=== PATIENT | female | born 1975 | race Caucasian/White ===

== ENCOUNTER 2020-02-20 10:16 | Outpatient (CLI) | payer OTHER, SELFPAY ==
--- NOTE | ~2020-02-20 | US_ITS ---
EXAMINATION: US thyroid EXAM DATE: 02/20/2020 13:43 INDICATION: Nontoxic thyroid nodule. TECHNIQUE: Multiple grayscale and Doppler images of the thyroid were obtained (by a technologist who performed the scan) and subsequently reviewed. Individual nodules and recommendations may be reporte d in accordance with TI-RADS system as designated by the 2017 ACR White Paper TI-RADS committee. Comp jeremiah is made to prior examination from 02/27/2019. FINDINGS: Right there are lobe measures 4.2 x 1.2 x 1.4 cm, the left measuring 2.3 x 0.8 x 1.0 cm, with relativ sari homogeneous thyroid echogenicity. Again there is a right thyroid lobe nodule identified, measures 2.4 x 1.2 x 2.2 centimeters, mixed cy stic and solid (1 point), hypoechoic (2 points), wider than tall, smooth margin, without echogenic fo ci, category TR3 for this nodule. Dimensions obtained on prior study at 1.9 x 0.9 x 2.0 cm, slightly increased but not meeting growth requirement for recommending biopsy. IMPRESSION: Slight interval increase in size of right thyroid lobe nodule but not meeting criteria fo r biopsy at this time. Recommend one-year follow-up thyroid ultrasound. Reviewed, dictated and finalized at location A. IMPRESSION: Slight interval increase in size of right thyroid lobe nodule but n ot meeting criteria for biopsy at this time. Recommend one-year follow-up thyro id ultrasound.
[2020-02-20 10:33] LABS: Hematocrit 40.3 % (35.0-49.0); Hemoglobin 13.6 g/dL (12.0-15.0); Mean Corpuscular HGB Conc 33.7 g/dL (32.0-36.0); Mean Corpuscular Hemoglobin 31.1 pg (27.0-31.0); Mean Platelet Volume 10.6 fl (9.2-11.8); Platelet Count Result 211 K/mm3 (150-420); Red Blood Count 4.38 M/mm3 (4.20-5.40); Red Cell Distribution Width 11.9 % (11.6-14.4); White Blood Count 6.9 K/mm3 (4.8-10.8)
[2020-02-20 10:55] LABS: Alanine Aminotransferase 34 U/L (14-59); Albumin Level 3.8 g/dL (3.4-5.0); Alkaline Phosphatase 60 U/L (46-116); Anion Gap 11.1 mmol/L (7-16); Aspartate Amino Transferase 21 U/L (15-37); Bilirubin,Total 0.5 mg/dL (0.00-1.00); Blood Urea Nitrogen 20 mg/dL (7-18); Calcium 9.3 mg/dL (8.5-10.1); Carbon Dioxide 30 mmol/L (21-32); Chloride 103 mmol/L (98-108); Cholesterol 166 mg/dL (0-200); Estimated Glomerular Filt Rate > 60; Glucose 92 mg/dL (70-99); HDL Direct 45 mg/dL (40-60); LDL Cholesterol Calculated 102 mg/dL (<130); Osmolality Calculated 292 mOsm/kg (285-295); Potassium 4.1 mmol/L (3.5-5.1); Sodium 140 mmol/L (136-145); Total Protein 7.3 g/dL (6.4-8.2); Triglycerides 96 mg/dL (0-150)
[2020-02-20 11:17] LABS: Thyroid Stimulating Hormone Reflex 1.66 u/IU/mL (0.36-3.74)
== END 2020-02-20 10:17 | disposition home or self-care (01) ==
PROVIDERS: PCP Family Medicine; Visit Provider Family Medicine
DX: E04.1 Nontoxic single thyroid nodule (principal)
CPT/HCPCS: 36415; 76536; 80053; 80061; 84443; 85027

== ENCOUNTER 2020-05-07 14:12 | Outpatient (CLI) | payer OTHER, SELFPAY ==
[2020-05-08 01:17] LABS: SARS-CoV-2 RNA PCR Negative
== END 2020-05-07 14:13 | disposition home or self-care (01) ==
LOC: CHSLAB 14:14
PROVIDERS: PCP Family Medicine; Visit Provider Family Medicine
DX: Z20.828 Contact with and (suspected) exposure to other viral communicable diseases (principal)
CPT/HCPCS: 87635; C9803; U0003

== ENCOUNTER 2020-05-27 09:32 | Outpatient (CLI) | payer OTHER, SELFPAY ==
--- NOTE | ~2020-05-27 | MMUS_ITS ---
EXAMINATION: MM screen RT diag LT w liliya, US breast LT limited HISTORY: Six-month follow-up for probably benign left breast masses, exam is do one year ago. TECHNIQUE: Craniocaudal, mediolateral, and mediolateral oblique 3-D tomosynthesis images of the left breast were performed and synthetic 2-D images were generated. Craniocaudal and mediolateral oblique 3-D tomosynthesis images of the right breast were performed and synthetic 2-D images were generated. CAD analysis was submitted and interpreted. High resolution limited left breast ultrasound was perfor med. COMPARISON: 12/08/2018, 06/13/2018 BREAST PARENCHYMAL COMPOSITION: The breasts are heterogeneously dense, which may obscure small masses . FINDINGS: MAMMOGRAPHIC FINDINGS: Right breast: There is no evidence of suspicious mass, calcification, or architectural distortion to suggest malignancy. Left breast: The previously described circumscribed equal density mass in the middle third of the an ast at the 9:00 location has decreased in size measuring 5 mm, previously 7 mm. No suspicious calcifi cation or architectural distortion are identified. ULTRASOUND: A stable 6 mm x 4 mm oval, circumscribed, parallel, hypoechoic mass is present at the 11:00 location 3 cm from the nipple. There is a cyst at the 9:00 location 2 cm from the nipple. Cysts are also prese nt at the 12:00 location 2 cm from the nipple. There is a possible 12 mm x 3 mm mass versus dense tis josé at the 12:00 location 2 cm from the nipple. IMPRESSION: 1. Probably benign left breast masses. 2. Recommend 6 month follow-up left diagnostic mammogram and ultrasound. BI-RADS category 3, probably benign findings. Reviewed, dictated and finalized at location A. IMPRESSION: 1. Probably benign left breast masses. 2. Recommend 6 month follow-up left diagnostic mammogram and ultrasound. BI-RADS category 3, probably benign findings.
== END 2020-05-27 09:33 | disposition home or self-care (01) ==
LOC: CHSIMG 09:33
PROVIDERS: PCP Family Medicine; Visit Provider Family Medicine
DX: Z12.31 Encounter for screening mammogram for malignant neoplasm of breast (principal); R92.8 Other abnormal and inconclusive findings on diagnostic imaging of breast
CPT/HCPCS: 76642; 77063; 77065; 77067

== ENCOUNTER 2020-07-07 10:01 | Outpatient (CLI) | payer OTHER, SELFPAY ==
[2020-07-08 14:53] LABS: SARS-CoV-2 RNA PCR Negative
== END 2020-07-07 10:02 | disposition home or self-care (01) ==
LOC: CHSLAB 10:04
PROVIDERS: PCP Family Medicine; Visit Provider Family Medicine
DX: Z20.828 Contact with and (suspected) exposure to other viral communicable diseases (principal)
CPT/HCPCS: 87635; C9803; U0003

== ENCOUNTER 2020-07-29 10:19 | Outpatient (CLI) | payer OTHER, SELFPAY ==
[2020-07-29 23:36] LABS: SARS-CoV-2 RNA PCR Negative
== END 2020-07-29 10:20 | disposition home or self-care (01) ==
PROVIDERS: PCP Family Medicine; Visit Provider Family Medicine
DX: Z20.828 Contact with and (suspected) exposure to other viral communicable diseases (principal)
CPT/HCPCS: 87635; C9803; U0003

== ENCOUNTER 2021-05-12 09:46 | Outpatient (CLI) | payer OTHER, SELFPAY ==
--- NOTE | ~2021-05-12 | MMUS_ITS ---
EXAMINATION: MM diagnostic kierra LT w liliya, US breast LT complete HISTORY: Follow-up left breast mass TECHNIQUE: Additional 3-D tomosynthesis images of the left breast were performed and synthetic 2-D im ages were generated. CAD analysis was submitted and interpreted. High resolution complete left breast ultrasound was performed. COMPARISON: Comparison to multiple prior studies sequentially, with oldest reviewed study dated 05/26. BREAST PARENCHYMAL COMPOSITION: Breast composed of scattered areas of fibroglandular density FINDINGS: MAMMOGRAPHIC FINDINGS: There is a persistent mass in the lower inner quadrant of the left breast, middle third. This mass a ppears slightly smaller than on prior examination. ULTRASOUND: Complete left breast ultrasound: At 12:00, 2 cm from the nipple, there is an oval hypoechoic mass alexandru suring 4 mm with parallel orientation, no internal vascularity and no posterior features. At 12:00, 2 cm from the nipple, there is a 7 mm cyst. At 12:00, 2 cm from the nipple, there is an oval hypoechoi c 6 mm mass, likely complicated cysts. At 1:00, 8 cm from the nipple, there is a 8 mm intramammary ly mph node. At 2:00, 5 cm from the nipple, there is a 5 mm cyst. At 9:00, 2 cm from the nipple, there i s a heterogeneous 5 mm mass with echogenic hilum, likely intramammary lymph node. IMPRESSION: 1. Probable benign left breast masses. 2. Recommend 6 month follow-up diagnostic mammogram and ultrasound BI-RADS category 3, probably benign findings. Reviewed, dictated and finalized at location A. IMPRESSION: 1. Probable benign left breast masses. 2. Recommend 6 month follow-up diagnostic mammogram and ultrasound BI-RADS category 3, probably benign findings.
--- NOTE | ~2021-05-12 | US_ITS ---
EXAMINATION: US thyroid EXAM DATE: 05/12/2021 10:57 INDICATION: E04.1 - Nontoxic single thyroid nodule. TECHNIQUE: Multiple grayscale and Doppler images of the thyroid were obtained (by a technologist who performed the scan) and subsequently reviewed. Individual nodules and recommendations may be reporte d in accordance with TI-RADS system as designated by the 2017 ACR White Paper TI-RADS committee. Comp patrickson is made to prior examination from 02/27/2019, 02/20/2020. FINDINGS: The right thyroid lobe measures 3.3 x 1.1 x 1.2 cm, the left measuring 2.8 x 0.6 x 1.0 cm. Again ther e are scattered thyroid nodules. Largest in the right thyroid lobe toward the isthmus, part solid cys tic today measures 1.7 x 1.5 x 1.9 cm (measured 1.9 x 0.9 x 2.0 cm in 2018, 2.4 x 1.2 x 2.2 in 2019). Category TR 3. There are some echogenic foci along the cyst/wall interfaces. IMPRESSION: Stable right thyroid nodule; recommend one-year follow-up. Reviewed, dictated and finalized at location B.
[2021-05-12 09:58] LABS: Hematocrit 42.3 % (35.0-49.0); Hemoglobin 13.8 g/dL (12.0-15.0); Mean Corpuscular HGB Conc 32.6 g/dL (32.0-36.0); Mean Corpuscular Hemoglobin 29.6 pg (27.0-31.0); Mean Corpuscular Volume 90.6 fL (78.0-102.0); Mean Platelet Volume 10.2 fl (9.2-11.8); Platelet Count Result 223 K/mm3 (150-420); Red Blood Count 4.67 M/mm3 (4.20-5.40); Red Cell Distribution Width 12.6 % (11.6-14.4); White Blood Count 5.8 K/mm3 (4.8-10.8)
[2021-05-12 10:55] LABS: Alanine Aminotransferase 36 U/L (14-59); Albumin Level 3.9 g/dL (3.4-5.0); Alkaline Phosphatase 64 U/L (46-116); Anion Gap 12 mmol/L (8-16); Aspartate Amino Transferase 16 U/L (15-37); Bilirubin,Total 0.4 mg/dL (0.00-1.00); Blood Urea Nitrogen 16 mg/dL (7-18); Calcium 9.5 mg/dL (8.5-10.1); Carbon Dioxide 29 mmol/L (21-32); Chloride 103 mmol/L (98-108); Cholesterol 154 mg/dL (0-200); Estimated Glomerular Filt Rate > 60; Glucose 95 mg/dL (70-99); HDL Direct 50 mg/dL (40-60); LDL Cholesterol Calculated 83 mg/dL (<130); Osmolality Calculated 299 mOsm/kg (285-295); Potassium 4.4 mmol/L (3.5-5.1); Sodium 144 mmol/L (136-145); Total Protein 6.8 g/dL (6.4-8.2); Triglycerides 106 mg/dL (0-150)
[2021-05-12 10:58] LABS: Thyroid Stimulating Hormone Reflex 2.36 u/IU/mL (0.36-3.74)
== END 2021-05-12 09:47 | disposition home or self-care (01) ==
LOC: CHSLAB 09:48
PROVIDERS: PCP Family Medicine; Visit Provider Family Medicine
DX: Z00.00 Encounter for general adult medical examination without abnormal findings (principal); R92.8 Other abnormal and inconclusive findings on diagnostic imaging of breast; E11.9 Type 2 diabetes mellitus without complications; E04.1 Nontoxic single thyroid nodule
CPT/HCPCS: 36415; 76536; 76641; 77061; 77065; 80053; 80061; 84443; 85027; G0279

== ENCOUNTER 2021-07-14 15:57 | Outpatient (CLI) | payer OTHER, SELFPAY ==
--- NOTE | ~2021-07-14 | XR_ITS ---
EXAMINATION: XR shoulder LT min 2V DATE: 07/14/2021 16:11 INDICATION: Rotator cuff tendinitis. However stretching injury at the left shoulder. TECHNIQUE: AP internally and externally rotated, AP oblique externally rotated and transscapular Y vi ews of the left shoulder were obtained. COMPARISON: None FINDINGS: Normal alignment. No fracture. Glenohumeral joint is normal. Mild acromioclavicular osteoarthritis. Soft tissues are unremarkable. Visualized portions of the lungs are clear. IMPRESSION: Mild left acromioclavicular osteoarthritis. Reviewed, dictated and finalized at location A. 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
== END 2021-07-14 15:58 | disposition home or self-care (01) ==
LOC: CHSIMG 15:59
PROVIDERS: PCP Family Medicine; Visit Provider Family Medicine
DX: M75.82 Other shoulder lesions, left shoulder (principal)
CPT/HCPCS: 73030

== ENCOUNTER 2021-08-04 07:40 | Outpatient (RCR) | payer OTHER, SELFPAY ==
--- NOTE | 2021-08-04 08:10 | PTOPEVAL ---
Thank you for referring Felisha Epperson to [facility].? The patient is scheduled to be seen for therapy? ____x/week for ___ weeks. Please review, sign, date and return this plan of care MICHELLE. I agree with and certify that the following plan of care is medically necessary. Referring Physician Date Admitting Provider: Attending Provider: Adalberto Alexis DO Referring Provider: *PT Outpatient Evaluation Start: 08/04/21 07:07 Freq: Status: Active Protocol: Document 08/04/21 07:07 ACR (Rec: 08/04/21 08:10 ACR [id number]) Therapy Assessment Status Assessment Status Assessment Status Evaluation Evaluation Information Problem Diagnosis L shoulder pain Onset 06/25/21 Subjective Information Patient reports that overtime Query Text:As Reported By Patient/ her shoulder started to really Family bother her. She was reaching over her opposite shoulder recently and felt a muscle spasm and the pain increased. She went to the MD and was given a steroid shot and did not have any relief. Patient states that lifting, overhead reaching, washing her back, getting dressed, and getting comfortable at night are all difficult for her. Patient states that her goal for therapy is to strengthen her arm to perform her daily and work activities. 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 [employer] Right Activity of Daily Living Ability Independent Indoor/Home Mobility Independent Community Mobility Independent Stairs Ability Independent Functional Cognition (Planning, Shopping Independent , Taking Medications) Cooking Yes Cleaning Yes Laundry Yes Shopping Yes Driving Yes Pain Assessment Timing of Pain Assessment Timing of Pain Assessment Assessment Pain Scale Pain Scale Used Numeric (1 - 10) Self Report Pain Assessment Left Shoulder(s) Reported Pain Level 2 Pain Description Aching,Dull Greatest Pain Intensity 9 Pain Score Pain Score 2: Self Report Interventions Used Interventions Used By Clinicians Activity or ADL's,Electrical
== END 2021-08-18 08:45 | disposition home or self-care (01) ==
LOC: CHSPT 07:40
PROVIDERS: PCP Family Medicine; Visit Provider Family Medicine
DX: M25.512 Pain in left shoulder (principal)
CPT/HCPCS: 97014; 97110; 97140; 97161; 97530; G0283

== ENCOUNTER 2021-08-31 14:49 | Outpatient (CLI) | payer OTHER, SELFPAY ==
--- NOTE | ~2021-08-31 | XR_ITS ---
EXAMINATION: XR abdomen/kub 1V DATE: 08/31/2021 15:07 INDICATION: Diarrhea. TECHNIQUE: A supine view of the abdomen was obtained. COMPARISON: Abdomen radiographs 03/27/2006 FINDINGS: There are no dilated loops of bowel. There is a moderate volume of stool in the colon. Ther e is fold thickening in the descending colon, consistent with colitis. IMPRESSION: 1. Fold thickening in the descending colon, consistent with colitis. Reviewed, dictated and finalized at location A. 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
== END 2021-08-31 14:50 | disposition home or self-care (01) ==
LOC: CHSLAB 14:50
PROVIDERS: PCP Nurse Practitioner Family; Visit Provider Nurse Practitioner Family
DX: R19.7 Diarrhea, unspecified (principal)
CPT/HCPCS: 74018

== ENCOUNTER 2021-09-01 08:55 | Outpatient (NON) | payer OTHER, SELFPAY | END 2021-09-01 08:56 | disposition home or self-care (01) | LOC: CHSLAB 08:57 | PROVIDERS: Visit Provider Nurse Practitioner Family | DX: R19.7 Diarrhea, unspecified (principal) | CPT/HCPCS: 87177; 87209; 87269 ==

== ENCOUNTER 2021-09-17 08:48 | Outpatient (CLI) | payer OTHER, SELFPAY ==
--- NOTE | ~2021-09-17 | XR_ITS ---
EXAMINATION: XR abdomen/kub 1V EXAM DATE: 09/17/2021 09:02 INDICATION: f/u colitis from 2 weeks ago . TECHNIQUE: Frontal projection(s) of the abdomen for interpretation. Comparison is made to prior exami nation from 08/31/2021. FINDINGS: There is moderate amount of colonic stool and gas. Previously seen colonic haustral fold th ickening has resolved. No small bowel dilation, nonobstructive bowel gas pattern. There are no mcrea spicious calcifications identified. There is no organomegaly suspected. The bones are unremarkable . IMPRESSION: Moderate amount of colonic stool. Reviewed, dictated and finalized at location B. 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
== END 2021-09-17 08:49 | disposition home or self-care (01) ==
LOC: CHSIMG 08:50
PROVIDERS: PCP Family Medicine; Visit Provider Nurse Practitioner Family
DX: K52.9 Noninfective gastroenteritis and colitis, unspecified (principal)
CPT/HCPCS: 74018

== ENCOUNTER 2021-11-10 10:58 | Outpatient (CLI) | payer OTHER, SELFPAY ==
[2021-11-10 16:52] LABS: Free T4 Free Thyroxine 1.02 ng/mL (0.78-2.19); Vitamin D 25 Hydroxy 30.1 ng/mL
[2021-11-13 06:10] LABS: FSH 25.3 mIU/mL (***)
== END 2021-11-10 10:59 | disposition home or self-care (01) ==
LOC: ANHWCLAB 11:00
PROVIDERS: PCP Family Medicine; Visit Provider Internal Medicine Endocrinology, Diabetes & Metabolism
DX: E04.1 Nontoxic single thyroid nodule (principal); E55.9 Vitamin D deficiency, unspecified; N95.1 Menopausal and female climacteric states
CPT/HCPCS: 36415; 82306; 83001; 84439; 84443

== ENCOUNTER 2022-05-25 08:55 | Outpatient (CLI) | payer OTHER, SELFPAY ==
--- NOTE | ~2022-05-25 | MMUS_ITS ---
EXAMINATION: MM diagnostic kierra BI w liliya, US breast BI complete HISTORY: Left breast masses follow-up TECHNIQUE: Full field and spot ML, MLO and CC 3-D tomosynthesis images of both breasts were performed and synthetic 2-D images were generated. CAD analysis was submitted and interpreted. High resolution complete bilateral breast ultrasound including all 4 quadrants and subareolar areas of each breast w as performed. COMPARISON: 05/12/2021 bilateral diagnostic mammogram and complete left breast ultrasound 05/26/2018 bilateral screening mammogram BREAST PARENCHYMAL COMPOSITION: There are scattered areas of fibroglandular density. FINDINGS: MAMMOGRAPHIC FINDINGS: Left breast: There is diminished size of a mass posterior inner mid left breast since 05/26/2018, dimi nished from 5.3 to 3.6 mm dimension during the interval, suggesting that this is a benign process. Right breast: There is a circumscribed approximately 4.5 x 7.5 mm mass in the very posterior inner mi d right breast. No interval suspicious mass, architectural distortion, malignant constipation, skin thickening or ret raction or significant new or developing density of either breast is noted otherwise. ULTRASOUND: Right breast: 9:00 near nipple: Dumbbell shaped 2.6 x 3.9 mm largely sonolucent lesion without posterior shadowing, likely benign Left breast: 12:00 3 cm from nipple: Parallel circumscribed 4.5 x 5.2 x 3 mm hypoechoic solid lesion without suspi cious internal vascularity or posterior shadowing 12:30 2 cm from nipple: Parallel circumscribed 7.7 x 5.6 x 4.5 mm hypoechoic lesion without internal vascularity or posterior shadowing IMPRESSION: 1. Benign findings 2. Bilateral mammographic screening in 12 months is recommended BI-RADS Category 2: Benign finding(s). Reviewed, dictated and finalized at location A. IMPRESSION: 1. Benign findings 2. Bilateral mammographic screening in 12 months is recommended BI-RADS Category 2: Benign finding(s).
--- NOTE | ~2022-05-25 | US_ITS ---
EXAMINATION: US thyroid DATE: 05/25/2022 09:47 INDICATION: Thyroid nodules TECHNIQUE: Multiple ultrasound images of the thyroid were obtained. COMPARISON: None. FINDINGS: The right thyroid lobe measures 3.8 x 1.8 x 1.2 cm. The left thyroid lobe measures 2.9 x 1.4 x 0.8 c m. Slight decrease in size of a now 1.4 similar wider than tall mixed solid and cystic hypoechoic no dule with smooth margins and without internal echogenic foci. (TI-RADS 3, mildly suspicious , FNA if >=2.5 cm, annual followup is >=1.5 cm) at the right thyroid lobe at the junction with the isthmus. Th ere are couple normal-sized jugular chain lymph nodes measuring 5 mm in maximal short axis diameter o n the left and 4 mm on the right. IMPRESSION: 1. Slight interval decrease in size of a now 1.4 cm TI RADS 3 nodule right thyroid nodule which is no w below size threshold for either biopsy or follow-up. Reviewed, dictated and finalized at location A. IMPRESSION: 1. Slight interval decrease in size of a now 1.4 cm TI RADS 3 nodule right thyr oid nodule which is now below size threshold for either biopsy or follow-up.
== END 2022-05-25 08:56 | disposition home or self-care (01) ==
LOC: CHSIMG 08:57
PROVIDERS: PCP Family Medicine; Visit Provider Internal Medicine Endocrinology, Diabetes & Metabolism
DX: E04.1 Nontoxic single thyroid nodule (principal); R92.8 Other abnormal and inconclusive findings on diagnostic imaging of breast
CPT/HCPCS: 76536; 76641; 77062; 77066; G0279

== ENCOUNTER 2022-06-29 16:04 | Outpatient (NON) | payer OTHER, SELFPAY | END 2022-06-29 16:05 | disposition home or self-care (01) | LOC: CHSLAB 16:05 | PROVIDERS: Visit Provider Family Medicine | DX: N39.0 Urinary tract infection, site not specified (principal) | CPT/HCPCS: 87077; 87086; 87088; 87186 ==

== ENCOUNTER 2023-05-19 10:52 | Outpatient (CLI) | payer OTHER, SELFPAY ==
[2023-05-19 18:51] LABS: Free T4 Free Thyroxine 1.11 ng/mL (0.78-2.19); Vitamin D 25 Hydroxy 45.8 ng/mL
== END 2023-05-19 10:53 | disposition home or self-care (01) ==
LOC: ANHWCLAB 10:53
PROVIDERS: PCP Nurse Practitioner Family; Visit Provider Internal Medicine Endocrinology, Diabetes & Metabolism
DX: E55.9 Vitamin D deficiency, unspecified (principal); E04.1 Nontoxic single thyroid nodule
CPT/HCPCS: 36415; 82306; 84439; 84443

== ENCOUNTER 2023-06-21 12:59 | Outpatient (CLI) | payer OTHER, SELFPAY ==
--- NOTE | ~2023-06-21 | MM_ITS ---
EXAMINATION: MM screening kierra BI w liliya HISTORY: Screening mammogram TECHNIQUE: Craniocaudal and mediolateral oblique 3-D tomosynthesis images were obtained and synthetic 2-D images were generated. CAD analysis was submitted and interpreted. COMPARISON: 05/25/2022 bilateral diagnostic mammography and bilateral complete breast ultrasound exami nation 05/26/2018 [facility] bilateral screening mammogram BREAST PARENCHYMAL COMPOSITION: There are scattered areas of fibroglandular density. FINDINGS: Stable fibroglandular asymmetry. Interval decreased size of a nodular density in the principal process engineer ior inner mid left breast since 2018. There is no evidence of suspicious mass, calcification, or arch itectural distortion to suggest malignancy in either breast. There has been no suspicious interval ch kandace. IMPRESSION: 1. No mammographic evidence of malignancy. 2. Recommend routine screening mammography in one year. BI-RADS Category 2: Benign finding(s). Reviewed, dictated and finalized at location A.
== END 2023-06-21 13:00 | disposition home or self-care (01) ==
LOC: CHSIMG 13:00
PROVIDERS: PCP Nurse Practitioner Family; Visit Provider Family Medicine
DX: Z12.31 Encounter for screening mammogram for malignant neoplasm of breast (principal)
CPT/HCPCS: 77063; 77067

== ENCOUNTER 2024-05-19 09:34 | Outpatient (CLI) | payer OTHER, SELFPAY ==
[2024-05-19 10:23] LABS: Hemoglobin A1C 5.3 % (<5.7)
[2024-05-19 10:31] LABS: Free T4 Free Thyroxine 0.85 ng/dL (0.76-1.46); Thyroid Stimulating Hormone 1.88 uIU/mL (0.36-3.74)
[2024-05-22 06:34] LABS: Vitamin D 25 Hydroxy 36 ng/mL (30-100)
== END 2024-05-19 09:35 | disposition home or self-care (01) ==
LOC: CHSLAB 09:35
PROVIDERS: PCP Family Medicine; Visit Provider Internal Medicine Endocrinology, Diabetes & Metabolism
DX: Z13.1 Encounter for screening for diabetes mellitus (principal); E55.9 Vitamin D deficiency, unspecified; E04.1 Nontoxic single thyroid nodule; Z83.3 Family history of diabetes mellitus
CPT/HCPCS: 36415; 82306; 83036; 84439; 84443

== ENCOUNTER 2024-06-20 14:33 | Outpatient (CLI) | payer OTHER, SELFPAY ==
[2024-06-20 14:43] LABS: Basophils Absolute Auto 0.04 K/mm3 (0.00-0.10); Basophils Percent Auto 0.5 % (0.0-1.0); Eosinophils Absolute Auto 0.15 K/mm3 (0.02-0.50); Hematocrit 40.8 % (35.0-49.0); Hemoglobin 13.5 g/dL (12.0-15.0); Immature Granulocyte Absolute 0.04 K/mm3 (0.00-0.00); Immature Granulocyte Percent A 0.5 % (0.0-0.0); Lymphocytes Absolute Auto 1.64 K/mm3 (1.10-4.50); Lymphocytes Percent Auto 21.8 % (18.0-42.0); Mean Corpuscular HGB Conc 33.1 g/dL (32-36); Mean Corpuscular Hemoglobin 29.3 pg (27.0-31.0); Mean Corpuscular Volume 88.5 fL (78.0-102.0); Mean Platelet Volume 10.1 fl (9.2-11.8); Monocytes Absolute Auto 0.56 K/mm3 (0.10-0.90); Monocytes Percent Auto 7.4 % (2.0-11.0); Neutrophils Percent Auto 67.8 % (50.0-70.0); Platelet Count Result 228 K/mm3 (150-420); Red Blood Count 4.61 M/mm3 (4.20-5.40); Red Cell Distribution Width 12.6 % (11.6-14.4); White Blood Count 7.5 K/mm3 (4.8-10.8)
[2024-06-20 15:51] LABS: Alanine Aminotransferase 54 U/L (14-59); Albumin Level 3.8 g/dL (3.4-5.0); Alkaline Phosphatase 76 U/L (46-116); Anion Gap 8 mmol/L (4-12); Aspartate Amino Transferase 22 U/L (15-37); Bilirubin,Total 0.3 mg/dL (0.00-1.00); Blood Urea Nitrogen 18 mg/dL (7-18); Calcium 9.2 mg/dL (8.5-10.1); Carbon Dioxide 30 mmol/L (21-32); Chloride 106 mmol/L (98-108); Cholesterol 170 mg/dL (0-200); Estimated Glomerular Filt Rate > 60; Folic Acid 16.5 ng/mL (8.6->20); Glucose 140 mg/dL (70-99); HDL Direct 49 mg/dL (40-60); LDL Cholesterol Calculated 85 mg/dL (<130); Magnesium 2.3 mg/dL (1.8-2.4); Osmolality Calculated 301 mOsm/kg (285-295); Potassium 4.2 mmol/L (3.5-5.1); Sodium 144 mmol/L (136-145); Total Protein 7.1 g/dL (6.4-8.2); Triglycerides 178 mg/dL (0-150); Vitamin B12 781 pg/mL (193-986)
[2024-06-21 15:34] LABS: Hemoglobin A1C 5.9 % (<5.7)
[2024-06-22 04:58] LABS: Hepatitis B Surface Antigen NON-REACTIVE (NON-REACTIVE); Hepatitis C Virus Antibody NON-REACTIVE (NON-REACTIVE)
[2024-06-22 05:02] LABS: Hepatitis A Antibody IgM NON-REACTIVE (NON-REACTIVE); Hepatitis B Core Antibody NON-REACTIVE (NON-REACTIVE)
[2024-06-25 04:53] LABS: Vitamin A 65 mcg/dL (38-98)
== END 2024-06-20 14:34 | disposition home or self-care (01) ==
LOC: CHSLAB 14:34
PROVIDERS: PCP Family Medicine; Visit Provider Family Medicine
DX: Z00.00 Encounter for general adult medical examination without abnormal findings (principal); E53.8 Deficiency of other specified B group vitamins; R53.83 Other fatigue; R74.01 Elevation of levels of liver transaminase levels; E11.9 Type 2 diabetes mellitus without complications
CPT/HCPCS: 36415; 80053; 80061; 80074; 82607; 82746; 83036; 83735; 84590; 85025

== ENCOUNTER 2024-07-25 14:49 | Outpatient (CLI) | payer OTHER, SELFPAY ==
--- NOTE | ~2024-07-25 | MM_ITS ---
EXAMINATION: MM screening [facility] BI w liliya HISTORY: Screening TECHNIQUE: Craniocaudal and mediolateral oblique 3-D tomosynthesis images were obtained and synthetic 2-D images were generated. CAD analysis was submitted and interpreted. COMPARISON: Comparison to multiple prior studies sequentially, with oldest reviewed study dated 12/08. BREAST PARENCHYMAL COMPOSITION: Not dense: There are scattered areas of fibroglandular density. FINDINGS: There is no evidence of suspicious mass, calcification, or architectural distortion to sugg est malignancy in either breast. There has been no suspicious interval change. IMPRESSION: 1. No mammographic evidence of malignancy. 2. Recommend routine screening mammography in one year. BI-RADS Category 1: Negative Reviewed, dictated and finalized at location B. 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
== END 2024-07-25 14:50 | disposition home or self-care (01) ==
PROVIDERS: PCP Family Medicine; Visit Provider Family Medicine
DX: Z12.31 Encounter for screening mammogram for malignant neoplasm of breast (principal)
CPT/HCPCS: 77063; 77067

== ENCOUNTER 2024-12-17 09:00 | Outpatient (CLI) | payer OTHER, SELFPAY ==
[2024-12-17 09:10] LABS: Basophils Absolute Auto 0.04 K/mm3 (0.00-0.10); Basophils Percent Auto 0.6 % (0.0-1.0); Eosinophils Absolute Auto 0.25 K/mm3 (0.02-0.50); Eosinophils Percent Auto 3.7 % (1.0-6.0); Hematocrit 41.8 % (35.0-49.0); Hemoglobin 13.5 g/dL (12.0-15.0); Immature Granulocyte Absolute 0.02 K/mm3 (0.00-0.00); Immature Granulocyte Percent A 0.3 % (0.0-0.0); Lymphocytes Absolute Auto 1.77 K/mm3 (1.10-4.50); Lymphocytes Percent Auto 26.5 % (18.0-42.0); Mean Corpuscular HGB Conc 32.3 g/dL (32-36); Mean Corpuscular Hemoglobin 29.4 pg (27.0-31.0); Mean Corpuscular Volume 91.1 fL (78.0-102.0); Mean Platelet Volume 10.5 fl (9.2-11.8); Monocytes Absolute Auto 0.52 K/mm3 (0.10-0.90); Monocytes Percent Auto 7.8 % (2.0-11.0); Neutrophils Absolute Auto 4.07 K/mm3 (1.70-7.20); Neutrophils Percent Auto 61.1 % (50.0-70.0); Platelet Count Result 211 K/mm3 (150-420); Red Blood Count 4.59 M/mm3 (4.20-5.40); Red Cell Distribution Width 12.7 % (11.6-14.4); White Blood Count 6.7 K/mm3 (4.8-10.8)
--- OUTSIDE RECORDS SUMMARY | 2024-12-17 09:52 | XMS_ITS | Clinical Summary ---
Author Organization [facility] Address [address] [place] [id number] Care Team Providers Care Fixer Boarding Room Name Role Phone Unavailable Primary Care Provider Unavailabl e Social History Tobacco Use Types Packs/Day Years Used Date Smoking Tobacco: Never Assessed Comments Unknown Sex and Gender Information Value Date Recorded Sex Assigned at Not on file Legal Sex Female 8:20 PM CDT Gender Identity Not on file Sexual Orientation Not on file Last Filed Vital Signs Vital Sign Reading Time Taken Comments Blood Pressure 100/60 06/16/2013 5:20 PM CDT Pulse 92 06/16/2013 5:20 PM CDT Temperature - - Respiratory Rate - - Oxygen Saturation - - Inhaled Oxygen Concentration - - Weight 62.6 kg (138 lb) 06/16/2013 5:20 PM CDT Height 157.5 cm (5' 2 ) 06/16/2013 5:20 PM CDT Body Mass Index 25.24 06/16/2013 5:20 PM CDT Plan of Treatment Health Maintenance Due Date Last Done Comments Cervical Cancer Screening Pa p Smear (Age 30 to 64) Every 3 Years 1974 Colorectal Cancer Screening Colonoscopy (10 Years) 1974 Annual Physical 1977 Hepatitis C 1992 DTaP, Tdap and Td Vaccines ( 1 - Tdap) 1993 Hepatitis B Vaccines (1 of 3 - 19+ 3-dose series) 1993 Cervical Cancer Screening Pa p with HPV Testing (Age 30 to 64) Every 5 Years 2004 Cervical Cancer Screening with HPV 2004 Mammogram Screening 2014 Pneumococcal Vaccine: 50+ Ye ars (1 of 1 - PCV) 2024 Zoster Vaccines (1 of 2) 2024 COVID-19 Vaccine (2023-2 5 season) 2024 Meningococcal B Vaccine Aged Out No l onger eligible based on patient's age to complete this topic Meningococcal Vaccine Aged Out No moshe carmine eligible based on patient's age to complete this topic RSV Immunizations Under 20 Months Aged Out No longer eligible based on patient's age to complete this topic
--- OUTSIDE RECORDS SUMMARY | 2024-12-17 09:52 | XMS_ITS | Clinical Summary ---
Author Organization [facility] Address [address] 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 This disclosure is being madepursuant to the Care Everywhere program and may not contain all information available regarding this patient. Last updated 18.[facility] Allergies No known active allergies Medications * Be aware that medications may not be up to date on this document. Alwaysverify current medications with the patient. 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 Gender Identity Not on file Sexual Orientation Not on file Last Filed Vital Signs Vital Sign Reading Time Taken Comments Blood Pressure 118/76 10/21/2016 2:22 PM POLICE DEPARTMENT SECRETARY Pulse 82 10/21/2016 2:22 PM POLICE DEPARTMENT SECRETARY Temperature 36.7 C (98.1 F) 10/21/2016 2:22 PM POLICE DEPARTMENT SECRETARY Respiratory Rate 16 10/21/2016 2:22 PM POLICE DEPARTMENT SECRETARY Oxygen Saturation 97% 10/21/2016 2:22 PM POLICE DEPARTMENT SECRETARY Inhaled Oxygen Concentration - - Weight 65.8 kg (145 lb) 10/21/2016 2:22 PM POLICE DEPARTMENT SECRETARY Height 157.5 cm (5' 2 ) 10/21/2016 2:22 PM POLICE DEPARTMENT SECRETARY Body Mass Index 26.52 10/21/2016 2:22 PM POLICE DEPARTMENT SECRETARY Plan of Treatment Health Maintenance Due Date Last Done Comments COLOGUARD (AGES 45-75) - COL ON CA SCREENING 1974 COLON MONITORING 1974 COLONOSCOPY - COLON CA SCREENING 1974 CT COLONOGRAPHY - COLON CA SCREENING 1974 Colorectal Cancer Screening 1974 FIT - COLON CA SCREENING 1974 FLEX SIG - COLON CA SCREENING 1974 LIPID TESTING 1974 MAMMOGRAM 1974 HIV SCREENING 1989 HEPATITIS C SCREENING 02/25/1992 DTAP/TDAP/TD VACCINES (1 - Tdap) 1993 HEPATITIS B VACCINE (1 of 3 - 19+ 3-dose series) 1993 PNEUMOCOCCAL VACCINE 50+ (1 of 1 - PCV) 2024 ZOSTER VACCINE (1 of 2) 2024 COVID-19 VACCINE (1 - 2023-2 5 season) 2024 DEPRESSION SCREENING 08/29/2024 INFLUENZA VACCINE (Season Ended) 2025 HIB VACCINE Aged Out No longer eligi ble based on patient's age to complete this topic HPV VACCINE Aged Out No longer eligi ble based on patient's age to complete this topic MENINGOCOCCAL (Group B) VACC INE SHARED DECISION-MAKING Aged Out No longer eligibl e based on patient's age to complete this topic MENINGOCOCCAL GROUPS A/C/Y/W VACCINE Aged Out No longer eligible b ased on patient's age to complete this topic Insurance Care Teams Shipyard Painter Apprentice Relationship Specialty Start Date End Date Shaw Strange MD [address] [place] [id number] PCP - General Family Medicine 10/21/16
[2024-12-17 10:02] LABS: Alanine Aminotransferase 32 U/L (14-59); Albumin Level 3.7 g/dL (3.4-5.0); Alkaline Phosphatase 94 U/L (46-116); Anion Gap 9 mmol/L (4-12); Aspartate Amino Transferase 20 U/L (15-37); Bilirubin,Total 0.5 mg/dL (0.00-1.00); Blood Urea Nitrogen 12 mg/dL (7-18); CRP 1.7 mg/dL (0.0-0.9); Calcium 9.7 mg/dL (8.5-10.1); Carbon Dioxide 30 mmol/L (21-32); Chloride 105 mmol/L (98-108); Estimated Glomerular Filt Rate > 60; Glucose 102 mg/dL (70-99); Osmolality Calculated 297 mOsm/kg (285-295); Potassium 5.1 mmol/L (3.5-5.1); Sodium 144 mmol/L (136-145); Total Protein 7.1 g/dL (6.4-8.2)
[2024-12-17 10:48] LABS: Vitamin B12 676 pg/mL (193-986)
[2024-12-17 11:13] LABS: Thyroid Stimulating Hormone Reflex 2.27 u/IU/mL (0.36-3.74)
== END 2024-12-17 09:01 | disposition home or self-care (01) ==
LOC: CHSLAB 09:01
PROVIDERS: PCP Family Medicine; Visit Provider Family Medicine
DX: E03.9 Hypothyroidism, unspecified (principal); E04.1 Nontoxic single thyroid nodule; R68.89 Other general symptoms and signs; E53.8 Deficiency of other specified B group vitamins
CPT/HCPCS: 36415; 80053; 82607; 82652; 82746; 84443; 85025; 86140

== ENCOUNTER 2024-12-24 08:38 | Outpatient (CLI) | payer OTHER, SELFPAY ==
--- NOTE | 2024-12-24 08:42 | EST_ITS ---
Patient Info Name: Felisha Epperson Age: 49 years : 1975 Gender: Female Ht: 61 in Wt: 138 lbs BSA: 1.66 m2 HR: 81 bpm BP: 104 / 78 mmHg Heart Rhythm: Sinus Rhythm Technical Quality: Good Exam Date: 12/24/2024 10:09 AM Exam Location: Echo Lab Patient Status: Outpatient Admit Date: 12/24/2024 Staff Ordering Physician: Adalberto Alexis DO Attending Provider: Jere Albert MD Exam Type: CA stress test treadmill w NM Study Info A treadmill exercise stress test was performed. Summary 1. 1. Negative Coy exercise stress test for ischemic ST changes by ECG criteria. 2. 2. Reduced functional capacity, achieving 8 METs of workload. 3. 3. Appropriate HR response to exercise. 4. 4. Appropriate HR recovery at 1 minute post exercise. 5. 5. Nuclear scan to follow and will be reported separately. Please correlate with it. Protocol: Coy Stress ECG Details Stage: REST Duration (min): 1 min : 40 sec Speed (mph): 0.0 Grade (%): 0 HR (bpm): 81 SBP (mmHg): 104 DBP (mmHg): 78 METS: --- Stage: REST Duration (min): 3 min : 51 sec Speed (mph): 0.0 Grade (%): 0 HR (bpm): 94 SBP (mmHg): 104 DBP (mmHg): 78 METS: --- Stage: STAGE 1 Duration (min): 1 min : 0 sec Speed (mph): 1.7 Grade (%): 10 HR (bpm): 125 SBP (mmHg): 104 DBP (mmHg): 78 METS: --- Stage: STAGE 1 Duration (min): 2 min : 0 sec Speed (mph): 1.7 Grade (%): 10 HR (bpm): 134 SBP (mmHg): 104 DBP (mmHg): 78 METS: --- Stage: STAGE 1 Duration (min): 3 min : 0 sec Speed (mph): 1.7 Grade (%): 10 HR (bpm): 128 SBP (mmHg): 134 DBP (mmHg): 68 METS: --- Stage: STAGE 2 Duration (min): 1 min : 0 sec Speed (mph): 2.5 Grade (%): 12 HR (bpm): 144 SBP (mmHg): 134 DBP (mmHg): 68 METS: --- Stage: STAGE 2 Duration (min): 2 min : 0 sec Speed (mph): 2.5 Grade (%): 12 HR (bpm): 152 SBP (mmHg): 134 DBP (mmHg): 68 METS: --- Stage: STAGE 2 Duration (min): 3 min : 0 sec Speed (mph): 2.5 Grade (%): 12 HR (bpm): 155 SBP (mmHg): 149 DBP (mmHg): 103 METS: --- Stage: STAGE 3 Duration (min): 0 min : 30 sec Speed (mph): 3.4 Grade (%): 14 HR (bpm): 163 SBP (mmHg): 149 DBP (mmHg): 103 METS: --- Stage: RECOVERY Duration (min): 0 min : 29 sec Speed (mph): 0.0 Grade (%): 0 HR (bpm): 154 SBP (mmHg): 149 DBP (mmHg): 103 METS: --- Stage: RECOVERY Duration (min): 1 min : 29 sec Speed (mph): 0.0 Grade (%): 0 HR (bpm): 122 SBP (mmHg): 149 DBP (mmHg): 103 METS: --- Stage: RECOVERY Duration (min): 2 min : 29 sec Speed (mph): 0.0 Grade (%): 0 HR (bpm): 111 SBP (mmHg): 122 DBP (mmHg): 93 METS: --- Stage: RECOVERY Duration (min): 3 min : 29 sec Speed (mph): 0.0 Grade (%): 0 HR (bpm): 102 SBP (mmHg): 122 DBP (mmHg): 93 METS: --- Stage: RECOVERY Duration (min): 4 min : 29 sec Speed (mph): 0.0 Grade (%): 0 HR (bpm): 100 SBP (mmHg): 108 DBP (mmHg): 87 METS: --- Stage: RECOVERY Duration (min): 5 min : 29 sec Speed (mph): 0.0 Grade (%): 0 HR (bpm): 100 SBP (mmHg): 108 DBP (mmHg): 87 METS: --- Stage: RECOVERY Duration (min): 6 min : 29 sec Speed (mph): 0.0 Grade (%): 0 HR (bpm): 98 SBP (mmHg): 105 DBP (mmHg): 73 METS: --- Stage: RECOVERY Duration (min): 6 min : 32 sec Speed (mph): 0.0 Grade (%): 0 HR (bpm): 98 SBP (mmHg): 105 DBP (mmHg): 73 METS: --- Rest HR: 94 bpm Peak HR: 164 bpm Rest Sys BP: 104 mmHg Peak Sys BP: 149 mmHg Max Pred HR: 170 bpm % Max Pred HR: 96 % Target HR: 145 bpm Max RPP: 24,436 bpm*mmHg Boss Score: 2 Target HR Summary: Test terminated after reaching target heart rate (85% max predicted) BP Response: Normal blood pressure response Termination Reason: Fatigue Cardiac Symptoms: None Max ST Seg Deviation: 1 mm Total Time: 6 min : 30 sec Rest Nguyễn BP: 78 mmHg Peak Nguyễn BP: 103 mmHg Angina Score: None Total METS: 8.0 Resting ECG Normal sinus rhythm - normal ECG. Stress ECG No abnormal ST/T wave changes with exercise. Arrhythmias None. Report Signatures
--- OUTSIDE RECORDS SUMMARY | 2024-12-24 08:54 | XMS_ITS | Clinical Summary ---
Author Organization [facility] Address [address] [place] [address] Care Team Providers Care Hairspring Truing Inspector Name Role Phone Shaw Strange MD Primary Care Provider [phone] Source Comments [facility],non-owned Affiliates and Associated Physician Practices is amultiple site organization consisting of ambulatory clinics and hospital sitesin [place], [place], [place] and [place]. This disclosure is being madepursuant to the Care Everywhere program and may not contain all information available regarding this patient. Last updated 18.[facility] Allergies No known active allergies Medications * Be aware that medications may not be up to date on this document. Alwaysverify current medications with the patient. DOXYCYCLINE CALCIUM PO Active Social History Tobacco Use Types Packs/Day Years Used Date Smoking Tobacco: Never Comments No Sex and Gender Information Value Date Recorded Sex Assigned at Not on file Legal Sex Female 9:25 AM QUOTE CLERK Gender Identity Not on file Sexual Orientation Not on file Last Filed Vital Signs Vital Sign Reading Time Taken Comments Blood Pressure 118/76 10/21/2016 2:22 PM QUOTE CLERK Pulse 82 10/21/2016 2:22 PM QUOTE CLERK Temperature 36.7 C (98.1 F) 10/21/2016 2:22 PM QUOTE CLERK Respiratory Rate 16 10/21/2016 2:22 PM QUOTE CLERK Oxygen Saturation 97% 10/21/2016 2:22 PM QUOTE CLERK Inhaled Oxygen Concentration - - Weight 65.8 kg (145 lb) 10/21/2016 2:22 PM QUOTE CLERK Height 157.5 cm (5' 2 ) 10/21/2016 2:22 PM QUOTE CLERK Body Mass Index 26.52 10/21/2016 2:22 PM QUOTE CLERK Plan of Treatment Health Maintenance Due Date [...] to complete this topic Insurance Care Teams Hairspring Truing Inspector Relationship Specialty Start Date End Date Shaw Strange MD [address] [place] [id number] PCP - General Family Medicine 10/21/16
--- OUTSIDE RECORDS SUMMARY | 2024-12-24 08:54 | XMS_ITS | Data Portability ---
Author Organization [facility], [address] [facility] ([place]) Address [address] [place] [address] Care Team Providers Care Cork Slabs Sawyer Name Role Phone DOROTHY ARAUZ Primary Care Provider [phone] BRANDON ABEBE Data Storage Specialist [phone] Assessment Encounter Date Assessment Date Assessment LastModified by Organization Details LastModified Time 09/06/2024 09/06/2024 Felisha is a 49-year-old female who is a patient of Dr. Arauz. She is here today after completing a Cologuard which came back positive. She has never had a colonoscopy before. She is not having any current GI complaints. REVIEW OF SYSTEMS: GENERAL: Denies fever, chills, sweats, anorexia. EYES: Denies change in vision, eye pain or photophobia. ENT: Denies ear pain or discharge, nasal obstruction or discharge. CV: Denies chest pain. RESP: Denies cough, dyspnea, excessive sputum, hemoptysis, wheezing. GI: as per HPI. : Denies urinary symptoms MSK: Denies new back pain, joint pain, joint swelling. SKIN: Denies rash, itching, dryness or lesions. NEURO: Denies seizures, syncope, tremors, vertigo. Psych: Denies mood problems FAMILY HISTORY: No family history of colon cancer SOCIAL HISTORY: Does not smoke PHYSICAL EXAM: General: Patient is well-developed and well-nourished. No acute distress. Neck: Neck is supple. No visible masses no lymphadenopathy. Heart: Heart is regular sinus rhythm. No murmurs heard. Lungs: Lungs are clear to auscultation bilaterally. Respirations unlabored. Abdomen: The abdomen is soft and nontender to palpation. Normal bowel sounds. Extremities: Normal range of motion of the upper and lower extremities. No edema in the lower extremities bilaterally. Skin: Warm and moist. Psychiatric: Patients mood and affect are appropriate. LABORATORY DATA: Positive cologuard. PROCEDURAL DATA: Never had a colonoscopy before IMPRESSION: 1. Positive Cologuard PLAN: 1. She is scheduled for colonoscopy. An explanation of the procedure was provided, risks and benefits of the procedure were explained. Procedural risks that were discussed include; risk of infection, bleeding, perforation or cardiopulmonary issues associated with the sedation itself. The patient also understands that this is an imperfect exam and lesions can be missed. The patient verbalizes understanding and wishes to proceed and they have no further questions at this time. [email or web address] Not available 09/17/2024 08:59:08 Plan of Treatment Reminders Order Date Submit Date Provider Last Modified By Organization Details Last Modified Time Details Appointments None record ed. Lab None record ed. Referral None record ed. Procedures None record ed. Surgeries None record ed. Imaging None record ed. Medication Orders None record ed. Patient TargetsNo targets recorded. Patient InstructionsNo instructions recorded. Reason for Referral None Reported. Problems Name Problem SNOMED Code Status Onset Date Resolution Date Notes Provider Name and Address Organization Details Recorded Time Colorectal cancer detected by DNA-based stool screening [id number] Active 025 [facility] 5 15:56:38 Problem Notes None recorded. Medical Equipment None Reported. Medications Name Sig Start Date Stop Date Status Note LastModified by Organization Details LastModified Time sulfamethox azole 800 mg-trimetho prim 160 mg tablet TAKE 1 TABLET BY MOUTH TWICE DAILY FOR 7 DAYS active Not Available Not Available No t Available fluoxetine active Not Available Not Av ailable Not Available Suprep Bowel Prep Kit 17.5 gram-3.13 gram-1.6 gram oral solution Take 354 mL by oral route as directed for 1 day. 10/26 completed Not Available Not Available Not Available Vitals Date Recorded Body height Body mass index (BMI) Body weight Systolic blood pressure Diastolic blood pressure Provider Name and Address Organization Details Last Updated DateTime 09/06/2024 154.94 cm 27.7 kg/m2 33325.36 g 120 mm[Hg] 90 mm[Hg] [facility] 5 15:16:00 Social History None recorded. Functional Status None recorded. Mental Status None recorded. Family History Nothing Reported. Medical History No medical history recorded. Gynecological HistoryNo gynecological history recorded. Obstetrics History GPAL:G 0 P 0 0 0 0 Past Encounters Encounter ID Performer Location Encounter Start Date Encounter Closed Date Diagnosis/Indication Diagnosis SNOMED-CT Code Diagnosis ICD10 Code Diagnosis Note [id number] Jaime Marin PA-C [address] [facility] [place] [address] [address] 09/06/2024 15:07:33 09/06/2024 15:58:53 Colorectal cancer detected by DNA-based stool screening 472722169 R19.5 [id number] Jere Lyman MD [facility] GI Anesthesi a [address] [address] 10/26/2024 12:09:56 11/05/2024 10:23:54 [id number] Brandon Abebe MD [facility] [place] [address] [address] 10/26/2024 12:09:57 10/30/2024 10:20:08 Health Concerns Section Related Observation LastModified by Organization Detai ls LastModified Time None Recorded Concern Status LastModified by Organization Details LastModified Time None Recorded Advance Directives Directive None Recorded Payers Encounter Date Sequence Insurance Name Policy Number Policy Ramirez Covered Member ID Ramirez Member ID Guarantor Name 09/06/2024 1 [employer] (POS) [id number] Felisha A Birdsell [id number] Felisha Birdsell 10/26/2024 1 [employer] (POS) [id number] Felisha A Birdsell [id number] Felisha Birdsell 10/26/2024 1 [employer] (POS) [id number] Felisha A Birdsell [id number] Felisha Birdsell Notes Date Note Type Note Provider Name and Address Organization Details Recorded Time 10/26/2024 text/html The history and physical dated {{DATE 09/06/2024}} completed by {{ lacie najera#}}has been reviewed, the patient has been examined and no change has occurred in the patient s condition since the history and physical was completed. Brandon Abebe MD [address] [place] [address], [phone], [facility] 10/26/2024 12:57:59 10/26/2024 text/html [facility] PRE-ANEST HETIC EVALUATIONReported bypatient.Reason for Visit:PROPOSED PROCEDURE: COLONOSCOPY W/ POSS BX; SURGEON: Andrae; PREOP DIAGNOSIS: Other fecal abnormalities General:Exercise tolerance good; Denies SOB, DAS, PND; Denies chest pain or chest tightness Prior Anesthetic Complication:no history of anesthesia complications Family Anesthetic Hx:no history of anesthesia complications Physical Exam: AirwayMP II TeethWNL NeckWNL CardiovascularRegular rate and rhythm RespiratoryClear to auscultation bilaterally GastrointestinalNPO status >6 hrs solids, >2 hrs clear liquids Vital Signs:Vital signs reviewed. Please refer to nursing preop note for values Assessment:ASA PS: I Plan:MAC Discussion:I have discussed with the patient the anesthetic plan, alternatives, pertinent risks, and complications; including but not limited to PONV, dental injury, sore throat, [place], stroke, etc. All questions were answered. Patient verbalize(s) understanding and agree(s) to proceed. Jere Lyman MD [address] [place] [address], [phone], [facility] 10/26/2024 12:45:17 OBGyn Episode No OBEpisode recorded.
--- OUTSIDE RECORDS SUMMARY | 2024-12-24 08:54 | XMS_ITS | Clinical Summary ---
Author Organization [facility] Address [address] [place] [address] Care Team Providers Care Radar Tester Name Role Phone Unavailable Primary Care Provider [...]
--- NOTE | 2024-12-24 12:57 | WPDCARIOSTRE ---
Nuclear Stress Test INDICATIONS Indications: Chest pain PROCEDURE Procedure Performed: Myocardial Perf Spect-Multi Procedure: Patient exercised on a treadmill and at peak HR was injected with 31.4 mCi of cardiolyte. Multiple tomographic images were obtained. These are of good quality. There is no evidence of perfusion defects with stress imaging. A separate resting images were obtained after patient was injected with 10.5 mCi of cardiolyte. te. Multiple tomographic images were obtained. These are of good quality. There is no evidence of perfusion defects with rest imaging. CONCLUSION Conclusion: 1. Normal myocardial perfusion imaging demonstrating no perfusion defects with stress or rest imaging. 2. No evidence of reversible ischemia. 3. Left ventriculogram demonstrates normal measure ejection fraction of 66% with no wall motion abnormalities. 4. TID score 0.97 is not elevated.
== END 2024-12-24 08:39 | disposition home or self-care (01) ==
LOC: CHSCARD 08:39
PROVIDERS: PCP Family Medicine; Visit Provider Family Medicine
DX: R68.89 Other general symptoms and signs (principal)
CPT/HCPCS: 78452; 93017; A9502

== ENCOUNTER 2025-02-26 13:50 | Outpatient (CLI) | payer OTHER, SELFPAY ==
--- NOTE | ~2025-02-26 | US_ITS ---
Pelvic ultrasound. Clinical History: Pelvic pain Technique: Realtime transabdominal and transvaginal scanning of the pelvis was performed. Color flow Doppler and Doppler spectral analysis were performed. Findings: The uterus is absent, compatible prior hysterectomy. Neither ovary seen. No adnexal mass seen. There is no evidence of free fluid in the cul de sac. Impression: No significant abnormality seen. Neither ovary visualized. No adnexal mass seen. Status post hysterectomy. Reviewed, dictated and finalized at location . Impression: No significant abnormality seen. Neither ovary visualized. No adnexal mass seen . Status post hysterectomy.
--- OUTSIDE RECORDS SUMMARY | 2025-02-26 13:54 | XMS_ITS | Clinical Summary ---
Author Organization [facility] Address [address] [place] [address] Care Team Providers Care Grounds/Maintenance Specialist Name Role Phone Unavailable Primary Care Provider [...] 5:20 PM CDT Height 157.5 cm (5' 2) 06/16/2013 5:20 PM CDT Body Mass Index [...]
--- OUTSIDE RECORDS SUMMARY | 2025-02-26 13:54 | XMS_ITS | Encounter Summary ---
Author Organization [facility] Address [address] [place] [address] Care Team Providers Care Certified Medical Asst Name Role Phone Adalberto Alexis DO Primary Care Provider Adalberto Alexis DO Unavailable [phone] Peña Bob MD Primary Care Provider [phone] Komal Calles MD Unavailable [phone] Encounter Details Date Type Department Care Team (Late st Contact Info) Description 02/18/2025 Telephone [facility] at [address] [address] Katie Menjivar MA Social History Tobacco Use Types Packs/Day Years Used Date Smoking Tobacco: Never Assessed AUDIT-C Answer Date Recorded Q1: How often do you have a drink containing alc ohol? 2-4 times a month 02/22/2025 Q2: How many drinks containi ng alcohol do you have on a typical day when you are drinking? 1 or 2 02/22/2025 Q3: How often do you have si x or more drinks on one occasion? Never 02/22/2025 PHQ-2 Answer Date Recorded PHQ-2 Total Score (If total score is 3 or more points, staff should administer the PHQ-9) 0 02/22/2025 Comments No Sex and Gender Information Value Date Recorded Sex Assigned at Not on file Legal Sex Female 3:22 PM CDT Gender Identity Not on file Sexual Orientation Not on file documented as of this encounter Miscellaneous Notes * Telephone Encounter - Katie Menjivar MA - 02/18/2025 7:25 PM CDT Patient was here on 02/15, did multiple tests. Patient has an appointment on March 15 with gynecology. Would like to get seen sooner if possible. Referring to PCP here in [place]. documented in this encounter Plan of Treatment Not on file documented as of this encounter Visit Diagnoses Not on filedocumented in this encounter Care Teams Certified Medical Asst Relationship Specialty Start Date End Date Adalberto Alexis DO [address] [place] [address] PCP - General Family Medicine 02/15/25 02/21/25 Peña Bob MD [address] [facility] [address] [place] [address] PCP - General Family Medicine 02/22/25 Adalberto Alexis DO [address] [place] [address] Family Medicine 02/15/25 Komal Calles MD [address] [place] [address] Referring Physician Endocrinology 02/22/25 documented as of this encounter
--- OUTSIDE RECORDS SUMMARY | 2025-02-26 13:54 | XMS_ITS | Clinical Summary ---
Author Organization [facility] [address] Address [facility] [place] [address] Care Team Providers Care Llama Farmer Name Role Phone Adalberto Alexis DO Unavailable [phone] Peña Bob MD Primary Care Provider [phone] Komal Calles MD Unavailable [phone] Allergies No known active allergies Medications lactose-reduced food (BALANCED NUTRITIONAL PLUS ORAL) Take by mouth Activ e cholecalciferol 25 mcg (1,000 unit) tablet Take 1 tablet (1,000 Units total) by mouth daily Active cetirizine (ZyrTEC) 10 mg tablet Take 1 tablet (10 mg total) by mouth daily Active triamcinolone (KENALOG) 0.5 % cream Apply topically 3 (three) times a day 30 g 5 Active fluoxetine HCl (PROZAC ORAL) 02/23/20 25 Discontinu ed(Therapy completed) cephalexin (KEFLEX) 500 mg capsuleIndicati ons:Dysuria Take 1 capsule (500 mg total) by mouth 2 (two) times a day for 5 days 10 capsule 5 02/21/20 25 triamcinolone (KENALOG) 0.5 % cream Apply topically 3 (three) times a day 02/26/20 25 Discontinu ed(Reorder ) Active Problems Problem Noted Date Diagnosed Date Positive colorectal cancer s creening using DNA-based stool test 09/05/2024 Encounters Date Type Department Care Team Description 02/25/2025 Results Follow-Up [facility] Primary Care at [address] [phone] Peña Bob MD Hepatitis C antibody Blood, Hepatitis B Surface Antigen Blood, Hepatitis B surface antibody (immune status) Blood, Additional followed-up results: 4 02/22/2025 9:30 AM CDT Lab [facility] Outpatient Lab at [address] [phone] 02/22/2025 9:20 AM CDT - 02/22/2025 11:59 PM CDT Hospital Encounter [place] [id number] Need for hepatitis C screening test; Need for hepatitis B screening test; Perimenopause Discharge Disposition: Discharge to home or self care 02/22/2025 8:45 AM CDT Office Visit [facility] Primary Care at [address] [phone] Peña Bob MD Establishing care with new doctor, encounter for (Primary Dx); Pelvic pain; Perimenopause; Need for hepatitis B screening test; Need for hepatitis C screening test 02/18/2025 Telephone [facility] at [address] [phone] Katie Menjivar MA 02/18/2025 Telephone [facility] at [address] [phone] Ana Maria Rust NP 02/16/2025 Results Follow-Up [facility] Con[facility]ient Care at [address] [phone] Joe Berman NP Vaginitis panel Vaginal, Urine culture Urine, clean voided, N. gonorrhoeae/C. trachomatis Amplification Vaginal 02/15/2025 4:45 PM CDT Office Visit [facility] Con[facility]ient Care at [address] [phone] Ana Maria Rust NP Dysuria (Primary Dx); Vaginal discharge 02/15/2025 4:03 PM CDT - 02/15/2025 11:59 [place] [address] Vaginal discharge; Dysuria Discharge Disposition: Discharge to home or self care from Last 3 Months Immunizations Immunization Administration Dates Next Due Influenza, Trivalent, Preservative Free, Intramu scular 06/20/2024 Surgical History Surgery Date Site/Laterality Comments HYSTERECTOMY 08/29/2004 - 08/28/2005 cervix taken 2004 Medical History Medical History Date Comments Thyroid nodule Family History Medical History Relation Name Comments Diabetes Brother Srikanth Stroke Brother Srikanth Hypertension Father Bharath No Known Problems Maternal Grandfather Heart disease Maternal Grandmother Arthritis Mother Lyric Fibromyalgia Mother Lyric Lung cancer Mother Lyric Colon cancer Paternal Grandfather No Known Problems Paternal Grandmother Diabetes Sister Analia Melanoma Sister Analia Depression Son Buzz Relation Name Status Comments Brother Srikanth Alive Father Bharath Alive Maternal Grandfather Maternal Grandmother Mother Lyric Paternal Grandfather Paternal Grandmother Sister Analia Alive Son Buzz Alive Social History Tobacco Use Types Packs/Day Years Used Date Smoking Tobacco: Never Smokeless Tobacco: Never Tobacco Cessation:Counseling Given: Not Answered AUDIT-C Answer Date Recorded Q1: How often [...] on file Sexual Orientation Not on file 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 Not on file Not on file Obstetrics History Last Filed Vital Signs Vital Sign Reading Time Taken Comments Blood Pressure 110/74 02/22/2025 8:45 AM CDT Pulse 73 02/22/2025 8:45 AM CDT Temperature 36.2 C (97.1 F) 02/22/2025 8:45 AM CDT Respiratory Rate 14 02/22/2025 8:45 AM CDT Oxygen Saturation 96% 02/22/2025 8:45 AM CDT Inhaled Oxygen Concentration - - Weight 64.9 kg (143 lb) 02/22/2025 8:45 AM CDT Height 154.9 cm (5' 1) 02/22/2025 8:45 AM CDT Body Mass Index 27.02 02/22/2025 8:45 AM CDT Plan of Treatment Health Maintenance Due Date Last Done Comments Breast Cancer Screening-Mammogram 1974 DTaP/Tdap/Td Vaccine (1 - Tdap) 1985 Regular Well Visit/Exam 18-64 1992 Covid-19 Vaccine (3 - 2023-2 5 season) 2024 01/07/2021, 12/17/2020 Influenza Vaccine (#1) 2025 06/20/2024 Depression Screening 02/22/2026 02/22/2025 Zoster Vaccine (1 of 2) 02/22/2026 Post poned from 2024 (Insurance / Financial) Colon Cancer Screening-Colonoscopy 09/06/2034 09/06/2024 Hepatitis B Screening Completed 02/22/2025 Hepatitis C Screening Completed 02/22/2025 Pneumococcal vaccine <65 Aged Out No longer eligible based on patient's age to complete this topic Procedures Procedure Name Priority Date/Time Associated Diagnosis Comments LUTEINIZING HORMONE (LH) Routine 02/22/2025 9:20 AM CDT Perimenopause FOLLICLE STIMULATING HORMONE Routine 02/22/2025 9:20 AM CDT Perimenopause ESTRADIOL Routine 02/22/2025 9:20 AM CDT Perimenopause HEPATITIS B CORE ANTIBODY, TOTAL Routine 02/22/2025 9:20 AM CDT Need for hepatitis B screening test HEPATITIS B SURFACE ANTIBODY (IMMUNE STATUS) Routine 02/22/2025 9:20 AM CDT Need for hepatitis B screening test HEPATITIS B SURFACE ANTIGEN Routine 02/22/2025 9:20 AM CDT Need for hepatitis B screening test HEPATITIS C ANTIBODY Routine 02/22/2025 9:20 AM CDT Need for hepatitis C screening test POCT URINALYSIS DIPSTICK Routine 02/15/2025 4:03 PM CDT Dysuria URINE CULTURE Routine 02/15/2025 4:03 PM CDT Dysuria VAGINITIS PANEL Routine 02/15/2025 4:03 PM CDT Vaginal discharge N. GONORRHOEAE/C. TRACHOMATIS AMPLIFICATION Routine 02/15/2025 4:03 PM CDT Vaginal discharge HM COLONOSCOPY Routine 09/06/2024 11:35 AM CHECKER [employer] from Last 3 Months or Most Recently Relevant to Health Maintenance Results * Hepatitis C antibody Blood (02/22/2025 9:20 AM CDT) Hep C Ab Nonreactive Nonreactive Comment: Interpretive Data Nonreactive: Antibodies to HCV not detected. Does NOT exclude the possibility of recent exposure to HCV. Equivocal: Equivocal for HCV antibodies. Supplemental molecular testing will be automatically performed to determine infection status in accordance with current CDC screening recommendations. Reactive: Positive for HCV antibodies. This may represent current or past HCV infection. Supplemental molecular testing will be automatically performed to determine current infection status in accordance with current CDC screening recommendations. Interpretive data was last revised on 2019. Blood 02/22/2025 9:20 AM CDT 02/22/2025 3:09 PM CDT us Peña Bob MD LAB MICROBIOLOGY - GENERAL ORDERABLES Final Result [facility] [address] Department [place] [address] * Hepatitis B core antibody, total Blood (02/22/2025 9:20 AM CDT) [facility] Hep B core IgG/IgM Nonreactive Nonreactive Comment:Testing performed by : [facility], [address] [place]., [address] Blood 02/22/2025 9:20 AM CDT 02/22/2025 11:46 PM CDT Peña Bob MD LAB MICROBIOLOGY - GENERAL ORDERABLES Final Result Performing Organization Address [facility] de Phone Number [facility] [place] [address] [address] [place] [address] * Estradiol (02/22/2025 9:20 AM CDT) [facility] Estradiol 8.0 pg/mL Comment: Interpretive Data Males: 11 43 pg/mL Females: Premenopausal: 31 533 pg/mL Postmenopausal: < 50 pg/mL Patients treated with Fluvestrant (Faslodex) should be tested using an alternate assay such as LC-MS due to potential for cross-reactivity. Estradiol varies widely throughout the menstrual cycle. Current interpretive data was last revised 2024. Testing performed by: [facility], [address] [place]., [address] Blood 02/22/2025 9:20 AM CDT 02/22/2025 11:46 PM CDT Peña Bob MD LAB BLOOD ORDERABLES Final Result Performing Organization Address [facility] [place] [address] [address] Department [place] [address] * Hepatitis B surface antibody (immune status) Blood (02/22/2025 9:20 AM CDT) [facility] HBsAb (immune status) Reactive Comment: Interpretive Data Nonreactive: This result is consistent with a lack of immunity to Hepatitis B Virus when used in the setting of routine screening. Equivocal: The immune status of the individual should be further assessed, if appropriate, after consideration of clinical status, risk factors, and additional diagnostic information. Reactive: This result is consistent with immunity to Hepatitis B Virus when used in the setting of routine screening. Current interpretive data was last revised on 19. HBsAb (immune status) index 275.0 mIUnits/m L [facility] Blood 02/22/2025 9:20 AM CDT 02/22/2025 3:09 PM CDT Peña Bob MD LAB MICROBIOLOGY - GENERAL ORDERABLES Final Result Performing Organization Address City/[facility] Co de Phone Number [facility] [place] [address] [address] [place] [address] * Hepatitis B Surface Antigen Blood (02/22/2025 9:20 AM CDT) HepBsAg Nonreactive Nonreactive Blood 02/22/2025 9:20 AM CDT 02/22/2025 3:09 PM CDT Peña Bob MD LAB MICROBIOLOGY - GENERAL ORDERABLES Final Result Performing Organization Address [facility] Co de Phone Number [facility] [address] [address] [place] [address] * LH (02/22/2025 9:20 AM CDT) LH 41.0 IUnits/L Comment: Interpretive Data Males: Adults: 1.7 - 8.6 IUnits/L Females: Follicular: 2.4 - 12.6 IUnits/L Ovulation: 14.0 - 95.6 IUnits/L Luteal: 1.0 - 11.4 IUnits/L Postmenopausal: 7.7 - 58.5 IUnits/L Current interpretive data was last revised on 2019. Testing performed by: [facility], [address] [place]., [address] Blood 02/22/2025 9:20 AM CDT 02/22/2025 11:46 PM CDT Peña Bob MD LAB BLOOD ORDERABLES Final Result Performing Organization Address City/[facility]/ZIP Co de Phone Number [facility] [place] [address] [facility] [place] [address] * Follicle stimulating hormone (02/22/2025 9:20 AM CDT) FSH 74.8 IUnits/L Comment: Interpretive Data Male: Adults: 1.5 - 12.4 IUnits/L Female: Follicular: 3.5 - 12.5 IUnits/L Ovulation: 4.7 - 21.5 IUnits/L Luteal: 1.7 - 7.7 IUnits/L Postmenopausal: 25.8 - 134.8 IUnits/L Current interpretive data was last revised 2015. Testing performed by: [facility], [address] [place] [address]., [address] Blood 02/22/2025 9:20 AM CDT 02/22/2025 11:46 PM CDT Peña Bob MD LAB BLOOD ORDERABLES Final Result Performing Organization Address [facility] Co de Phone Number [place] [place] [address] [place] [address] * N. gonorrhoeae/C. trachomatis Amplification Vaginal (02/15/2025 4:03 PM CDT) Pathologist [facility] C. trachomatis Not Detected [facility] Comment:Testing performed by : [facility], [address] [place] [address]., [address] N. gonorrhoeae Not Detected [facility] Comment: Interpretive Data This assay detects Chlamydia trachomatis and Neisseria gonorrhoeae by nucleic acid amplification testing (NAAT). This assay has been cleared by the [place] Food and Drug administration. The performance characteristics of this test have been verified by the [facility] Molecular Infectious Disease laboratory. The performance characteristics of this test have not been evaluated in individuals less than 14 years of age. Current Interpretive Data was last revised on 2023. Testing performed by: [facility], [address] [place]., [address] Vaginal (None) 02/15/2025 4: 03 PM CDT 02/16/2025 8:19 PM CDT Ana Maria Rust NP LAB MICROBIOLOGY - GENERAL ORDERABLES Final Result Performing Organization Address [facility]/ZIP Co de Phone Number [facility] [address] [address] [place] [address] [facility] * Vaginitis panel Vaginal (02/15/2025 4:03 PM CDT) Pathologist [facility] Bacterial Vaginosis Not Detected Not Detected Comment:A negative result do es not preclude a possible infection. Results should be considered in conjunction with clinical presentation to determine the disease status. Kandy group Not Detected Not Detected [facility] Kandy glabrata/ krusei Not Detected Not Detected [facility] Trichomonas DNA Not Detected Not Detected [facility] Vaginal 02/15/2025 4:03 PM CDT 02/15/2025 7:38 PM CDT Narrative [facility] - 02/15/2025 9:02 PM CDT The Cepheid Xpert Xpress MVP test detects DNA targets from anaerobic bacteria associated with bacterial vaginosis, Kandy species associated with vulvovaginal candidiasis, and Trichomonas vaginalis by nucleic acid amplification testing (NAAT). Results should be interpreted in conjunction with other clinical data. This test cannot be used to assess therapeutic success or failure because target nucleic acids may persist following antimicrobial therapy. This test has been cleared by the [place] Food and Drug Administration to aid in the diagnosis of vaginal infections in symptomatic women ages 14 and older. The performance characteristics of this test have been verified by the [facility]. Ana Maria Rust NP LAB MICROBIOLOGY - GENERAL ORDERABLES Final Result Performing Organization Address City/[facility]/ZIP Co de Phone Number [facility] [place] [address] [address] [place] [address] CH * (ABNORMAL) POCT urinalysis dipstick (02/15/2025 4:03 PM CDT) Color, Urine, POC Light Yellow Clarity, ur, POC Clear Clear Glucose, ur, POC Negative Negative Bilirubin, ur, POC Negative Negative Ketones, ur, POC Negative Negative Specific [place], POC 1.010 1.003 - 1.030 Blood, ur, POC Hemolyzed, trace(A) Negative pH, ur, POC 6.0 5.0 - 8.0 Protein, ur, POC Negative Negative Urobilinogen, urine, POC 0.2 0.2 - 1.0 mg/dL Nitrite, ur, POC Negative Negative Leukocytes, ur, POC Trace(A) Negative Lot Number [id number] Urine 02/15/2025 4:03 PM CDT Ana Maria Rust NP POINT OF CARE TEST ORDERAB LES Final Result * Urine culture Urine, clean voided (02/15/2025 4:03 PM CDT) Report Final Report: Less than 100,000 colonies/mL (clinically insignificant growth based on current clinical standards) Comment:Testing performed by : [facility], [address] [place]., [address] Organism (CLINICALLY INSIGNIFICANT GROWTH [facility] Urine, clean voided 02/15/2025 4:03 PM CDT 02/15/2025 10:26 PM CDT Narrative [facility] - 02/17/2025 7:51 AM CDT Testing performed by [facility] Microbiology Laboratory ([phone]) Ana Maria Rust NP LAB MICROBIOLOGY - GENERAL ORDERABLES Final Result [facility] [place] [address] [address] [place] [address] * HM COLONOSCOPY (09/06/2024 11:35 AM [employer]) Historical Provider HEALTH MAINTENANCE Final Result from Last 3 Months or Most Recently Relevant to Health Maintenance Insurance [facility] Care Teams Llama Farmer Relationship Specialty Start Date End Date Peña Bob MD [address] [facility] [address] [place] [address] PCP - General Family Medicine 02/22/25 Adalberto Alexis DO [address] [place] [address] Family Medicine 02/15/25 Komal Calles MD [address] [facility] 1 [place] [address] Referring Physician Endocrinology 02/22/25
--- OUTSIDE RECORDS SUMMARY | 2025-02-26 13:54 | XMS_ITS | Data Portability ---
Author Organization [facility], [address] [facility] ([place]) Address [address] [place] [address] Care Team Providers Care Sponsorship Manager Name Role Phone DOROTHY ARAUZ Primary Care Provider BRANDON ABEBE Inner Tube Tuber Machine Operator Assessment Encounter Date Assessment Date Assessment LastModified [...] have no further questions at this time. [email or web address] Not available 09/17/2024 08:59:08 Plan of Treatment [...] Colorectal cancer detected by DNA-based stool screening [id number] Active 025 [facility] 5 15:56:38 Problem Notes None recorded. Medical [...] Updated DateTime 09/06/2024 154.94 cm 27.7 kg/m2 14795.36 g 120 mm[Hg] 90 mm[Hg] [facility] 15:16:00 Social History None recorded. Functional Status None recorded. Mental Status None recorded. Family History Nothing Reported. Medical History No medical history recorded. Gynecological HistoryNo gynecological history recorded. Obstetrics History GPAL:G 0 P 0 0 0 0 Past Encounters Encounter ID Performer Location Encounter Start Date Encounter Closed Date Diagnosis/Indication Diagnosis SNOMED-CT Code Diagnosis ICD10 Code Diagnosis Note [id number] Jaime Marin PA-C [address] [facility] [place] [address] [place] [phone] 09/06/2024 15:07:33 09/06/2024 15:58:53 Colorectal cancer detected by DNA-based stool screening 657733536 R19.5 [id number] Jere Lyman MD [facility] GI Anesthesi a [address] [phone] 10/26/2024 12:09:56 11/05/2024 10:23:54 [id number] Brandon Abebe MD [facility] [place]) [facility] [address] [phone] 10/26/2024 12:09:57 10/30/2024 10:20:08 Health Concerns Section Related Observation LastModified by Organization Detai ls LastModified Time None Recorded Concern Status LastModified by Organization Details LastModified Time None Recorded Advance Directives Directive None Recorded Payers Insurance Date Sequence Insurance Name Policy Number Policy Ramirez Covered Member ID Ramirez Member ID Guarantor Name 11/05/2024 1 [employer] (POS) [id number] Felisha Epperson [id number] Felisha Epperson Notes Date Note Type Note Provider Name and Address Organization Details Recorded Time 10/26/2024 text/html The history and physical dated 09/06/2024 completed by rosalva najera been reviewed, the patient has been examined and no change has occurred in the patient s condition since the history and physical was completed. Brandon Abebe MD [address] [place] [address], [phone], [facility] 10/26/2024 12:57:59 10/26/2024 text/html [facility] [...] limited to PONV, dental injury, sore throat, [place], stroke, etc. All questions were answered. Patient verbalize(s) understanding and agree(s) to proceed. Jere Lyman MD [address] [facility], [place], [address], [facility] 10/26/2024 12:45:17 OBGyn Episode No OBEpisode recorded.
--- OUTSIDE RECORDS SUMMARY | 2025-02-26 13:54 | XMS_ITS | Clinical Summary ---
Author Organization [email or web address] Address [address] [place] [address] Care Team Providers Care Dredge Pipeman Name Role Phone Shaw Strange MD Primary Care Provider [phone] Source Comments [email or web address],non-owned Affiliates and Associated Physician Practices is amultiple site organization consisting of ambulatory clinics and hospital sitesin [place], [place], [place] and [place]. This disclosure is being madepursuant to the Care Everywhere program and may not contain all information available regarding this patient. Last updated 18.[email or web address] Allergies No known active allergies Medications * Be aware that medications may not be up to date on this document. Alwaysverify current medications with the patient. 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 Gender Identity Not on file Sexual Orientation Not on file Last Filed Vital Signs Vital Sign Reading Time Taken Comments Blood Pressure 118/76 10/21/2016 2:22 PM AIR COMPRESSOR MECHANIC Pulse 82 10/21/2016 2:22 PM AIR COMPRESSOR MECHANIC Temperature 36.7 C (98.1 F) 10/21/2016 2:22 PM AIR COMPRESSOR MECHANIC Respiratory Rate 16 10/21/2016 2:22 PM AIR COMPRESSOR MECHANIC Oxygen Saturation 97% 10/21/2016 2:22 PM AIR COMPRESSOR MECHANIC Inhaled Oxygen Concentration - - Weight 65.8 kg (145 lb) 10/21/2016 2:22 PM AIR COMPRESSOR MECHANIC Height 157.5 cm (5' 2) 10/21/2016 2:22 PM AIR COMPRESSOR MECHANIC Body Mass Index 26.52 10/21/2016 2:22 PM AIR COMPRESSOR MECHANIC Plan of Treatment Health Maintenance Due Date [...] to complete this topic Insurance Care Teams Dredge Pipeman Relationship Specialty Start Date End Date Shaw Strange MD [address] [place] [address] PCP - General Family Medicine 10/21/16
--- OUTSIDE RECORDS SUMMARY | 2025-02-26 13:54 | XMS_ITS | Encounter Summary ---
Author Organization [facility] Healthcare Address [address] [place] [address] Care Team Providers Care African Studies Professor Name Role Phone Adalberto Alexis DO Primary Care Provider Adalberto Alexis DO Unavailable [phone] Peña Bob MD Primary Care Provider [phone] Komal Calles MD Unavailable [phone] Encounter Details Date Type Department Care Team (Latest Contact Info) Description 02/16/2025 Results Follow-Up [facility] Group Convenient Care at [address] [phone] Joe Berman NP [address] [place] [address] [address] [place] [address] Vaginitis panel Vaginal, Urine culture Urine, clean voided, N. gonorrhoeae/C. trachomatis Amplification Vaginal Social History Tobacco Use Types Packs/Day Years Used Date Smoking Tobacco: Never Assessed Comments No Sex and Gender Information Value Date Recorded Sex Assigned at Not on file Legal Sex Female 3:22 PM CDT Gender Identity Not on file Sexual Orientation Not on file documented as of this encounter Plan of Treatment Not on file documented as of this encounter Visit Diagnoses Not on filedocumented in this encounter Care Teams African Studies Professor Relationship Specialty Start Date End Date Adalberto Alexis DO [address] [place] [address] PCP - General Family Medicine 02/15/25 02/21/25 Peña Bob MD [address] [facility] [address] [place] [address] PCP - General Family Medicine 02/22/25 Adalberto Alexis DO [address] [place] [address] Family Medicine 02/15/25 Komal Calles MD [address] [facility] 1 [place] [address] Referring Physician Endocrinology 02/22/25 documented as of this encounter
--- OUTSIDE RECORDS SUMMARY | 2025-02-26 13:54 | XMS_ITS | Referral Summary ---
Author Organization [facility] [address] Address [address] [place] [id number] Care Team Providers Care Line Construction Engineer Name Role Phone Adalberto Alexis DO Unavailable + [phone] Peña Bob MD Primary Care Provider [phone] Komal Calles MD Unavailable [phone] Encounters Date Type Department Care Team Description 02/25/2025 Results Follow-Up [facility] Medical [facility] Primary Care at [address] [address] Peña Bob MD Hepatitis C antibody Blood, Hepatitis B Surface Antigen Blood, Hepatitis B surface antibody (immune status) Blood, Additional followed-up results: 4 02/22/2025 9:20 AM CDT - 02/22/2025 11:59 PM CDT Hospital Encounter [address] [address] Need for hepatitis C screening test; Need for hepatitis B screening test; Perimenopause Discharge Disposition: Discharge to home or self care 02/22/2025 9:30 AM CDT Lab [facility] Outpatient Lab at [address] [address] 02/22/2025 8:45 AM CDT Office Visit [facility] Primary Care at [address] [address] Peña Bob MD Establishing care with new doctor, encounter for (Primary Dx); Pelvic pain; Perimenopause; Need for hepatitis B screening test; Need for hepatitis C screening test 02/18/2025 Telephone [facility] Medical [facility] Convenient Care at [address] [address] Katie Menjivar MA 02/18/2025 Telephone [facility] Care at [address] [address] Ana Maria Rust NP 02/16/2025 Results Follow-Up [facility] Convenient Care at [address] [address] Joe Berman NP Vaginitis panel Vaginal, Urine culture Urine, clean voided, N. gonorrhoeae/C. trachomatis Amplification Vaginal 02/15/2025 4:03 PM CDT - 02/15/2025 11:59 PM CDT Hospital Encounter [address] [address] Vaginal discharge; Dysuria Discharge Disposition: Discharge to home or self care 02/15/2025 4:45 PM CDT Office Visit [facility] Convenient Care at [address] [address] Ana Maria Rust NP Dysuria (Primary Dx); Vaginal discharge from Last 3 Months Allergies No known active allergies Medications lactose-reduced [...] for 5 days 10 capsule 5 02/21/20 triamcinolone (KENALOG) 0.5 % cream Apply topically 3 (three) times a day 02/26/20 Discontinu ed(Reorder ) Active Problems Problem Noted Date Diagnosed Date Positive colorectal cancer s creening using DNA-based stool test 09/05/2024 Immunizations Immunization Administration Dates Next Due Influenza, Trivalent, Preservative Free, Intramu scular 06/20/2024 Social History Tobacco Use Types Packs/Day Years [...] file Not on file Not on file Last Filed Vital Signs [...] 02/22/2025 8:45 AM CDT Plan of Treatment Not on file Procedures Procedure Name Priority Date/Time Associated Diagnosis [...] discharge HM COLONOSCOPY Routine 09/06/2024 11:35 AM CONVENIENCE STORE MANAGER from Last 3 Months or Most Recently [...] GENERAL ORDERABLES Final Result Performing Organization Address [facility] Co de Phone Number [facility] [address] [place] [address] * Hepatitis B core antibody, total Blood (02/22/2025 9:20 AM CDT) Hep B core IgG/IgM Nonreactive Nonreactive Comment:Testing performed by : [facility], [address] [place] [address]., [id number] Blood 02/22/2025 9:20 AM CDT 02/22/2025 11:46 PM CDT Peña Bob MD LAB MICROBIOLOGY - GENERAL ORDERABLES Final Result Performing Organization Address [facility] Co de Phone Number [facility] [address] [place] [address] * Estradiol (02/22/2025 9:20 AM CDT) Estradiol 8.0 pg/mL Comment: Interpretive Data Males: 11 43 pg/mL Females: Premenopausal: 31 533 pg/mL Postmenopausal: < 50 pg/mL Patients treated with Fluvestrant (Faslodex) should be tested using an alternate assay such as LC-MS due to potential for cross-reactivity. Estradiol varies widely throughout the menstrual cycle. Current interpretive data was last revised 2024. Testing performed by: [facility], [address] [place] [address]., [id number] Blood 02/22/2025 9:20 AM CDT 02/22/2025 11:46 PM CDT Peña Bob MD LAB BLOOD ORDERABLES Final Result Performing Organization Address [facility] Co de Phone Number [facility] [address] [address] [facility] [place] [address] * Hepatitis B surface antibody (immune status) Blood (02/22/2025 9:20 AM CDT) HBsAb (immune status) Reactive Comment: Interpretive Data [...] GENERAL ORDERABLES Final Result Performing Organization Address [facility] Co de Phone Number [facility] [address] [place] [address] * Hepatitis B Surface Antigen Blood (02/22/2025 9:20 AM CDT) HepBsAg Nonreactive Nonreactive Blood 02/22/2025 9:20 AM CDT 02/22/2025 3:09 PM CDT Peña Bob MD LAB MICROBIOLOGY - GENERAL ORDERABLES Final Result Performing Organization Address City/[facility] Co de Phone Number [facility] [address] [place] [address] * LH (02/22/2025 9:20 AM CDT) LH 41.0 IUnits/L Comment: Interpretive Data Males: Adults: 1.7 - 8.6 IUnits/L Females: Follicular: 2.4 - 12.6 IUnits/L Ovulation: 14.0 - 95.6 IUnits/L Luteal: 1.0 - 11.4 IUnits/L Postmenopausal: 7.7 - 58.5 IUnits/L Current interpretive data was last revised on 2019. Testing performed by: [facility], [address] [place] [address]., [id number] Blood 02/22/2025 9:20 AM CDT 02/22/2025 11:46 PM CDT Peña Bob MD LAB BLOOD ORDERABLES Final Result Performing Organization Address [facility] de Phone Number [facility] [address] [address] [facility] [place] [address] * Follicle stimulating hormone (02/22/2025 9:20 AM CDT) FSH 74.8 IUnits/L Comment: Interpretive Data Male: Adults: 1.5 - 12.4 IUnits/L Female: Follicular: 3.5 - 12.5 IUnits/L Ovulation: 4.7 - 21.5 IUnits/L Luteal: 1.7 - 7.7 IUnits/L Postmenopausal: 25.8 - 134.8 IUnits/L Current interpretive data was last revised 2015. Testing performed by: [facility], [address] [place] [address]., [id number] Blood 02/22/2025 9:20 AM CDT 02/22/2025 11:46 PM CDT Peña Bob MD LAB BLOOD ORDERABLES Final Result Performing Organization Address [facility] Co de Phone Number [facility] [place] [address] [address] [facility] [place] [address] * N. gonorrhoeae/C. trachomatis Amplification Vaginal (02/15/2025 4:03 PM CDT) Pathologist [facility] C. trachomatis Not Detected [facility] Comment:Testing performed by : [facility], [address] [place] [address]., [address] N. gonorrhoeae Not Detected [facility] Comment: Interpretive Data This assay detects Chlamydia trachomatis and Neisseria gonorrhoeae by nucleic acid amplification testing (NAAT). This assay has been cleared by the [place] Food and Drug administration. The performance characteristics of this test have been verified by the [facility] Molecular Infectious Disease laboratory. The performance characteristics of this test have not been evaluated in individuals less than 14 years of age. Current Interpretive Data was last revised on 2023. Testing performed by: [facility], [address] [place] [address]., [id number] Vaginal (None) 02/15/2025 4: 03 PM CDT 02/16/2025 8:19 PM CDT Ana Maria Rust NP LAB MICROBIOLOGY - GENERAL ORDERABLES Final Result [facility] [address] [address] [place] [address] [facility] * Vaginitis panel Vaginal (02/15/2025 4:03 PM CDT) Pathologist [facility] Bacterial Vaginosis Not Detected Not Detected Comment:A negative result do es not preclude a possible infection. Results should be considered in conjunction with clinical presentation to determine the disease status. Kandy group Not Detected Not Detected [facility] Kandy glabrata/ krusei Not Detected Not Detected [facility] Trichomonas DNA Not Detected Not Detected [facility] Vaginal 02/15/2025 4:03 PM CDT 02/15/2025 7:38 PM CDT Narrative [facility] - 02/15/2025 9:02 PM CDT The [employer] Homes[employer] Xpert Xpress MVP test detects DNA targets [...] this test have been verified by the [facility]. Ana Maria Rust NP LAB MICROBIOLOGY - GENERAL ORDERABLES Final Result [facility] [address] [address] [place] [address] CH * (ABNORMAL) POCT urinalysis dipstick (02/15/2025 4:03 PM CDT) Color, Urine, POC Light Yellow Clarity, ur, POC Clear Clear Glucose, ur, POC Negative Negative Bilirubin, ur, POC Negative Negative Ketones, ur, POC Negative Negative Specific [place], POC 1.010 1.003 - 1.030 Blood, ur, POC Hemolyzed, trace(A) Negative pH, ur, POC 6.0 5.0 - 8.0 Protein, ur, POC Negative Negative Urobilinogen, urine, POC 0.2 0.2 - 1.0 mg/dL Nitrite, ur, POC Negative Negative Leukocytes, ur, POC Trace(A) Negative Lot Number [id number] Urine 02/15/2025 4:03 PM CDT Ana Maria Rust NP POINT OF CARE TEST ORDERAB LES Final Result * Urine culture Urine, clean voided (02/15/2025 4:03 PM CDT) Report Final Report: Less than 100,000 colonies/mL (clinically insignificant growth based on current clinical standards) Comment:Testing performed by : [facility], [address], [place]., [address] Organism (CLINICALLY INSIGNIFICANT GROWTH [facility] [place] Urine, clean voided 02/15/2025 4:03 PM CDT 02/15/2025 10:26 PM CDT Narrative [facility] - 02/17/2025 7:51 AM CDT Testing performed by [facility] Microbiology Laboratory ([phone]) Ana Maria Rust PATROLLER LAB MICROBIOLOGY - GENERAL ORDERABLES Final Result [facility] [place] [address] [address] [place] [address] * HM COLONOSCOPY (09/06/2024 11:35 AM CONVENIENCE STORE MANAGER) Historical Provider HEALTH MAINTENANCE Final Result from Last 3 Months or Most Recently Relevant to Health Maintenance Insurance [facility] Care Teams Line Construction Engineer Relationship Specialty Start Date End Date Peña Bob MD [address] [facility] [address] [place] [address] PCP - General Family Medicine 02/22/25 Adalberto Alexis DO [address] [place] [address] Family Medicine 02/15/25 Komal Calles MD [address] [place] [address] Referring Physician Endocrinology 02/22/25
--- OUTSIDE RECORDS SUMMARY | 2025-02-26 13:54 | XMS_ITS | Encounter Summary ---
Author Organization [facility] Address [address] [place] [address] Care Team Providers Care Lime Kiln Tender Name Role Phone Adalberto Alexis DO Unavailable [phone] Peña Bob MD Primary Care Provider [phone] Komal Calles MD Unavailable [phone] Encounter Details Date Type Department Care Team (Late st Contact Info) Description 02/25/2025 Results Follow-Up [facility] Primary Care at [address] [address] Peña Bob MD [address] [place] [address] [address] [place] [address] Hepatitis C antibody Blood, Hepatitis B Surface Antigen Blood, Hepatitis B surface antibody (immune status) Blood, Additional followed-up results: 4 Social History Tobacco Use Types Packs/Day Years Used Date Smoking Tobacco: Never Smokeless Tobacco: Never AUDIT-C Answer Date Recorded Q1: How often [...] file Not on file Not on file documented as of this encounter Plan of Treatment Not on file documented as of this encounter Visit Diagnoses Not on filedocumented in this encounter Care Teams Lime Kiln Tender Relationship Specialty Start Date End Date Peña Bob MD [address] [place] [address] PCP - General Family Medicine 02/22/25 Adalberto Alexis DO [address] [place] [address] Family Medicine 02/15/25 Komal Calles MD [address] [place] [address] Referring Physician Endocrinology 02/22/25 documented as of this encounter
--- OUTSIDE RECORDS SUMMARY | 2025-02-26 13:54 | XMS_ITS | Encounter Summary ---
Author Organization [facility] Healthcare Address [address] [place] [address] Care Team Providers Care Commercial Solar Sales Consultant Name Role Phone Adalberto Alexis DO Primary Care Provider Adalberto Alexis DO Unavailable [phone] Peña Bob MD Primary Care Provider [phone] Komal Calles MD Unavailable [phone] Encounter Details Date Type Department Care Team (Late st Contact Info) Description 02/18/2025 Telephone [facility] Medical Group Convenient Care at [address] [address] Ana Maria Rust, HEARING THERAPY DIRECTOR [address] [place] [address] [address] [place] [address] Social History Tobacco Use Types Packs/Day Years [...] Encounter - Katie Menjivar MA - 02/18/2025 7:38 PM CDT Referred to Family practice in [place] for further evaluation. * Telephone Encounter - Janae Mirza - 02/18/2025 8:47 AM CDT Patient is calling back with questions about her apt and next steps. Would like a call back. documented in this encounter Plan of Treatment Not on file documented as of this encounter Visit Diagnoses Not on filedocumented in this encounter Care Teams Commercial Solar Sales Consultant Relationship Specialty Start Date End Date Adalberto Alexis DO [address] [place] [address] PCP - General Family Medicine 02/15/25 02/21/25 Peña Bob MD [address] [facility] [address] [place] [address] PCP - General Family Medicine 02/22/25 Adalberto Alexis DO [address] [place] [address] Family Medicine 02/15/25 Komal Calles MD [address] [place] [address] Referring Physician Endocrinology 02/22/25 documented as of this encounter
== END 2025-02-26 13:51 | disposition home or self-care (01) ==
LOC: CHSIMG 13:51
PROVIDERS: PCP Family Medicine; Visit Provider Family Medicine
DX: R10.2 Pelvic and perineal pain (principal); Z90.79 Acquired absence of other genital organ(s)
CPT/HCPCS: 76830

== ENCOUNTER 2025-07-02 09:54 | Outpatient (CLI) | payer OTHER, SELFPAY ==
--- NOTE | ~2025-07-02 | CT_ITS ---
EXAMINATION: CT abdomen pelvis w con DATE: 07/02/2025 10:49 INDICATION: Constipation. Other general symptoms and signs. TECHNIQUE: Computed tomography (CT) of the abdomen and pelvis was performed with 100 mL Omnipaque 350 intravenous contrast. Automated exposure control and iterative reconstruction technique were employed. The dose-length product was 288.43 mGy-cm. COMPARISON: CT abdomen and pelvis 03/29/2006 FINDINGS: The visualized portions of the lung bases are clear without pneumonia or pleural effusion. The heart size is normal. No pericardial effusion. There is diffuse hepatic steatosis. The gallbladder, spleen, pancreas, and adrenal glands are normal. There is cortical thinning of the kidneys. There is a large volume of stool in the colon. There is distention of the sigmoid colon with wall thickening and surrounding fat stranding, consistent with stercoral colitis. The appendix is normal. There are no pathologically enlarged lymph nodes. There is trace pelvic ascites. There is mild lumbar spondylosis. 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 IMPRESSION: 1. Stercoral colitis. 2. Diffuse hepatic steatosis. Reviewed, dictated and finalized at location E. 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
[2025-07-02 10:06] LABS: Hematocrit 42.2 % (35.0-49.0); Hemoglobin 13.9 g/dL (12.0-15.0); Immature Granulocyte Percent A 0.4 % (0.0-0.0); Lymphocytes Absolute Auto 1.82 K/mm3 (1.10-4.50); Mean Corpuscular HGB Conc 32.9 g/dL (32-36); Mean Corpuscular Hemoglobin 29.5 pg (27.0-31.0); Mean Corpuscular Volume 89.6 fL (78.0-102.0); Nucleated Red Blood Cells Absolute Auto 0.00 K/mm3 (0.00-0.00); Nucleated Red Blood Cells Perc 0.0 % (0-0.0); Platelet Count Result 232 K/mm3 (150-420); Red Blood Count 4.71 M/mm3 (4.20-5.40); White Blood Count 7.1 K/mm3 (4.8-10.8)
[2025-07-02 11:01] LABS: Alanine Aminotransferase 22 U/L (6-35); Albumin Level 4.6 g/dL (3.5-5.1); Alkaline Phosphatase 80 U/L (38-126); Anion Gap 7 mmol/L (4-12); Aspartate Amino Transferase 22 U/L (14-36); Bilirubin,Total 1.6 mg/dL (0.2-1.3); Blood Urea Nitrogen 9 mg/dL (7-17); Calcium 9.3 mg/dL (8.4-10.2); Carbon Dioxide 29 mmol/L (22-30); Chloride 105 mmol/L (98-107); Estimated Glomerular Filt Rate > 60; Glucose 98 mg/dL (65-110); Osmolality Calculated 290 mOsm/kg (285-295); Potassium 4.6 mmol/L (3.4-5.0); Sodium 141 mmol/L (137-145); Total Protein 7.2 g/dL (6.3-8.2)
--- OUTSIDE RECORDS SUMMARY | 2025-07-02 11:13 | XMS_ITS | Encounter Summary ---
Author Organization [facility] Healthcare Address [address] [place] [address] Care Team Providers Care Box Icer Name Role Phone Adalberto Alexis DO Unavailable [phone] Peña Bob MD Primary Care Provider [phone] Komal Calles MD Unavailable [phone] Encounter Details Date Type Department Care Team (Late st Contact Info) Description 05/10/2025 Results Follow-Up [facility] [address] [place] [address] Angelia Vela, [address] [place] [address] [employer] Advanced Vaginitis, TMA Endocervical/vagina l Social History Tobacco Use Types Packs/Day Years Used Date Smoking Tobacco: Never Smokeless Tobacco: Never AUDIT-C Answer Date Recorded Q1: How often do you have a drink containing alc ohol? Monthly or less 03/06/2025 Q2: How many drinks containi ng alcohol do you have on a typical day when you are drinking? 1 or 2 03/06/2025 Q3: How often do you have si x or more drinks on one occasion? 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 Not on file Not on file documented as of this encounter Ordered Prescriptions Prescription Sig Dispense Quantity Refills Last Filled Start Date End Date metroNIDAZOLE (FLAGYL) 500 mg tablet Take 1 tablet (500 mg total) by mouth 2 (two) times a day for 7 days 14 tablet 05/10/2025 05/17/2025 documented in this encounter Plan of Treatment Not on file documented as of this encounter Visit Diagnoses Not on filedocumented in this encounter Care Teams Box Icer Relationship Specialty Start Date End Date Peña Bob MD [address] [place] [address] PCP - General Family Medicine 02/22/25 Adalberto Alexis DO [address] [place] [address] Family Medicine 02/15/25 Komal Calles MD [address] [place] [address] Referring Physician Endocrinology 02/22/25 documented as of this encounter
--- OUTSIDE RECORDS SUMMARY | 2025-07-02 11:14 | XMS_ITS | Clinical Summary ---
Author Organization [facility] [employer] Address [address] [place] [address] Care Team Providers Care Operations Professional Name Role Phone Shaw Strange MD Primary Care Provider [phone] Source Comments [facility] [employer],non-owned Affiliates and Associated Physician Practices is amultiple site organization consisting of ambulatory clinics and hospital sitesin [place], [place], [place] and [place]. This disclosure is being madepursuant to the Care Everywhere program and may not contain all information available regarding this patient. Last updated 18.[facility] [employer] Allergies No known active allergies Medications * Be aware that medications may not be up to date on this document. Alwaysverify current medications with the patient. DOXYCYCLINE CALCIUM PO Active Social History Tobacco Use Types Packs/Day Years Used Date Smoking Tobacco: Never Comments No Sex and Gender Information Value Date Recorded Sex Assigned at Not on file Legal Sex Female 9:25 AM REGIONAL PRODUCTION MANAGER Gender Identity Not on file Sexual Orientation Not on file Last Filed Vital Signs Vital Sign Reading Time Taken Comments Blood Pressure 118/76 10/21/2016 2:22 PM REGIONAL PRODUCTION MANAGER Pulse 82 10/21/2016 2:22 PM REGIONAL PRODUCTION MANAGER Temperature 36.7 C (98.1 F) 10/21/2016 2:22 PM REGIONAL PRODUCTION MANAGER Respiratory Rate 16 10/21/2016 2:22 PM REGIONAL PRODUCTION MANAGER Oxygen Saturation 97% 10/21/2016 2:22 PM REGIONAL PRODUCTION MANAGER Inhaled Oxygen Concentration - - Weight 65.8 kg (145 lb) 10/21/2016 2:22 PM REGIONAL PRODUCTION MANAGER Height 157.5 cm (5' 2) 10/21/2016 2:22 PM REGIONAL PRODUCTION MANAGER Body Mass Index 26.52 10/21/2016 2:22 PM REGIONAL PRODUCTION MANAGER Plan of Treatment Health Maintenance Due Date [...] 2024 ZOSTER VACCINE (1 of 2) 2024 DEPRESSION SCREENING 08/29/2024 COVID-19 VACCINE (1 - 2023-2 5 season) 2025 INFLUENZA VACCINE (#1) 2025 HIB VACCINE Aged Out No longer [...] to complete this topic Insurance Care Teams Operations Professional Relationship Specialty Start Date End Date Shaw Strange MD [address] [place] [address] PCP - General Family Medicine 10/21/16
--- OUTSIDE RECORDS SUMMARY | 2025-07-02 11:14 | XMS_ITS | Clinical Summary ---
Author Organization [facility] [address] [facility] [place] [address] Care Team Providers Care Gearcase Assembler Name Role Phone Adalberto Alexis DO Unavailable [phone] Peña Bob MD Primary Care Provider [phone] Komal Calles MD Unavailable [phone] Allergies No known active allergies Medications lactose-reduced food (BALANCED NUTRITIONAL PLUS ORAL) Take by mouth Active cholecalciferol 25 mcg (1,000 unit) tablet Take 1 tablet (1,000 Units total) by mouth daily Active cetirizine (ZyrTEC) 10 mg tablet Take 1 tablet (10 mg total) by mouth daily Active triamcinolone (KENALOG) 0.5 % cream Apply topically 3 (three) times a day 30 g 5 Active naproxen-diphenh ydramine 220-25 mg tablet Take 1 capsule by mouth nightly Active estradiol-noreth indrone 0.5-0.1 mg per tablet Take 1 tablet by mouth daily 30 tablet 11 5 03/06/20 26 Active estradioL (ESTRACE) 0.01 % (0.1 mg/gram) vaginal cream Apply nightly to vagina for 1 week, then Tuesday/ y/ Tuesday 42.5 g 5 5 11/02/19 26 Active clindamycin (CLEOCIN) 2 % vaginal creamIndications :Bacterial Vaginosis Insert 1 Application into the vagina nightly For 4-6 weeks. 40 g 5 Active Active Problems Problem Noted Date Diagnosed Date Positive colorectal cancer s creening using DNA-based stool test 09/05/2024 Encounters Date Type Department Care Team Description 05/10/2025 Results Follow-Up [facility] [address] [place] [address] Angelia Vela DO SureSwab Advanced Vaginitis, TMA Endocervical/vagina l 05/08/2025 9:00 AM CDT Office Visit [facility] at [address] [place] [id number] Angelia Vela DO Vasomotor symptoms due to menopause (Primary Dx); Vaginal discharge from Last 3 Months Immunizations Immunization Administration Dates Next Due Influenza, Trivalent, Preservative Free, Intramu scular 06/20/2024 Surgical History Surgery Date Site/Laterality Comments HYSTERECTOMY 08/29/2004 - 08/28/2005 cervix taken 2004 LAPAROSCOPIC ENDOMETRIOSIS FULGURATION 08/29/2001 - 08/28/2002 Medical History Medical History Date Comments Thyroid nodule Endometriosis Family History Medical History Relation Name Comments [...] on file Not on file Obstetrics History Para Term AB IAB SAB Ectopic Multiple Livin g Live Births 4 4 4 Date Outcome GA Total Labor Labor//3rd Weight Sex Type Anes PTL Kari A1 A5 Name Clin 1993 Term M Vaginal Complications:None 1994 Term F Vaginal Complications:None 1998 Term F Vaginal Complications:None 2002 Term F Vaginal Complications:None Last Filed Vital Signs Vital Sign Reading Time Taken Comments Blood Pressure 118/76 05/08/2025 9:00 AM CDT Pulse 73 02/22/2025 8:45 AM CDT Temperature 36.2 C (97.1 F) 02/22/2025 8:45 AM CDT Respiratory Rate 14 02/22/2025 8:45 AM CDT Oxygen Saturation 96% 02/22/2025 8:45 AM CDT Inhaled Oxygen Concentration - - Weight 67.9 kg (149 lb 9.6 oz) 05/08/2025 9:00 A M CDT Height 154.9 cm (5' 1) 03/06/2025 9:17 AM CDT Body Mass Index 28.27 03/06/2025 9:17 AM CDT Plan of Treatment Health Maintenance Due Date Last Done Comments Breast Cancer Screening-Mammogram 1974 Hepatitis B Screening 1992 Covid-19 Vaccine ( season) 2025 01/07/2021, 12/17/2020 Influenza Vaccine (#1) 2025 , 06/02/2022, 06/10/2021, Additional history exists Zoster Vaccine (1 of 2) 02/22/2026 Post poned from 2024 (Insurance / Financial) Regular Well Visit/Exam 18-64 03/06/2026 03/06/2025 Depression Screening 05/08/2026 05/08/2025, 03/06/2025, 02/22/2025 DTaP/Tdap/Td Vaccine (2 - Td or Tdap) 03/16/2028 03/16/2018 Colon Cancer Screening-Colonoscopy 09/06/2034 09/06/2024 Hepatitis C Screening Completed 02/22/2025 Pneumococcal vaccine <65 Aged Out No longer eligible based on patient's age to complete this topic Procedures Procedure Name Priority Date/Time Associated Diagnosis Comments SURESWAB ADVANCED VAGINITIS, TMA Routine 05/08/2025 10:09 AM CDT Vaginal discharge HEPATITIS C ANTIBODY Routine 02/22/2025 9:20 AM CDT Need for hepatitis C screening test HM COLONOSCOPY Routine 09/06/2024 11:35 AM TRACK HELPER from Last 3 Months or Most Recently Relevant to Health Maintenance Results * (ABNORMAL) SureSwab Advanced Vaginitis, TMA Endocervical/vaginal (05/08/2025 10:09 AM CDT) SureSwab(R) ADV Bacterial vaginosis (BV), TMA POSITIVE(A) NEGATIVE [facility] Kandy species NOT DETECTED NOT DETECTED [facility] Kandy glabrata NOT DETECTED NOT DETECTED [facility] Comment: Kandy species C. albicans, C. tropicalis, C. parapsilosis, and/or C. dubliniensis can be detected, but not differentiated, in the Kandy spp. result. Trichomonas vaginalis (TV), TMA NOT DETECTED NOT DETECTED [facility] Endocervical/vag inal 05/08/2025 10:09 AM CDT 05/09/2025 5:20 AM CDT us Angelia Vela DO LAB MICROBIOLOGY - GENE RAL ORDERABLES Final Result [facility] [id number] [id number] * Hepatitis C antibody Blood (02/22/2025 9:20 AM CDT) Pathologist [facility] Hep C Ab Nonreactive Nonreactive Comment: Interpretive [...] GENERAL ORDERABLES Final Result Performing Organization Address City/State/[facility] Co ma Phone Number [phone] [phone] [address] [place] [address] * HM COLONOSCOPY (09/06/2024 11:35 AM TRACK HELPER) Historical Provider HEALTH MAINTENANCE Final Result from Last 3 Months or Most Recently Relevant to Health Maintenance Insurance [facility] Care Teams Gearcase Assembler Relationship Specialty Start Date End Date Peña Bob MD [address] [address] PCP - General Family Medicine 02/22/25 Adalberto Alexis DO [address] [place] [address] Family Medicine 02/15/25 Komal Calles MD [address] [address] Referring Physician Endocrinology 02/22/25
--- OUTSIDE RECORDS SUMMARY | 2025-07-02 11:14 | XMS_ITS | Clinical Summary ---
Author Organization [facility] Address [address] [place] [id number] Care Team Providers Care Cloth Cutting Inspector Name Role Phone Unavailable Primary Care Provider [...] Vaccines (1 of 2) 2024 COVID-19 Vaccine ( - 2024-2 6 season) 2025 Influenza Adult (#1) 2025 Hepatitis A Vaccines Aged Out No long er eligible based on patient's age to complete this topic Meningococcal B Vaccine Aged Out No l onger eligible based on patient's age to complete this topic Meningococcal Vaccine Aged Out No moshe carmine eligible based on patient's age to complete this topic RSV Immunizations Under 20 Months Aged Out No longer eligible based on patient's age to complete this topic
== END 2025-07-02 09:55 | disposition home or self-care (01) ==
PROVIDERS: PCP Family Medicine; Visit Provider Family Medicine
DX: R68.89 Other general symptoms and signs (principal); K52.89 Other specified noninfective gastroenteritis and colitis; K76.0 Fatty (change of) liver, not elsewhere classified
CPT/HCPCS: 36415; 74177; 80053; 85025; Q9967